=== PATIENT | male | born 1945 | race Caucasian/White ===

== ENCOUNTER 2018-01-08 06:14 | Day surgery (SDC) | payer MEDICARE ==
[~2018-01-08] VITALS: Ht 182.9 cm; Wt 85.8 kg
[~2018-01-08 06:14] MED LIST: ASPI325T PO; ATEN-102 PO; FISHCAP PO; LISI2.5T3 PO; LORA1TAB PO; PRAV40TA2 PO; SPIR25 PO
[2018-01-08] MEDS ORDERED: IOHEXOL 350 MG/ML 100 ML BTL (for Cath Lab) OTHER ONE (06:15)
[2018-01-08] MEDS ORDERED: SODIUM CHLORID 0.9% 500 ML IV PRN (07:00)
[2018-01-08] MEDS ORDERED: CHLORHEXIDINE GLUCONATE 2 % 1 PACK (2 CLOTHS) TOPICAL PRN (07:00)
[2018-01-08] MEDS ORDERED: METOPROLOL TARTRATE 25 MG TAB PO PRN (07:00)
[2018-01-08] MEDS ORDERED: POVIDONE IODINE 5% (ANTISEPSIS KIT) 4 APPLICATIONS EACH NARE PRN (07:00)
[2018-01-08] MEDS ORDERED: LACTATED RINGER'S 1000 ML IV PRN (07:00)
[2018-01-08] MEDS ORDERED: SODIUM CHLOR 0.9% 1000 ML INJ 1,000 ML IV SCH (07:00)
[2018-01-08 07:05] VITALS: BP 111/72; PULSE 69; RESP 16; TEMP 97.6; O2SAT 98
[2018-01-08] MEDS ORDERED: ISOS30TA3 PO (07:38)
[2018-01-08] MEDS ORDERED: ALBUAER3 INH (07:38)
[2018-01-08] MEDS ORDERED: SPIR25TA3 PO (07:38)
[2018-01-08] MEDS ORDERED: LORA1TAB12 PO (07:38)
[2018-01-08] MEDS ORDERED: METO1TAB9 PO (07:38)
[2018-01-08] MEDS ORDERED: ASPI325T33 PO (07:38)
[2018-01-08] MEDS ORDERED: GLYC1AER INH (07:38)
[2018-01-08] MEDS ORDERED: HEPARIN SODIUM - IV 10,000 UNITS/10 ML VIAL ONE ×2 (10:28→10:46)
[2018-01-08] MEDS ORDERED: HEPARIN-NS/PF FLUSH BAG 2,000 ML IV FLUSH ONE (10:43)
[2018-01-08] MEDS ORDERED: MIDAZOLAM HCL 2 MG/2 ML VIAL ONE (10:46)
[2018-01-08] MEDS ORDERED: BIVALIRUDIN 250 MG VIAL ONE (11:10)
--- NOTE | 2018-01-08 11:39 | CATHPROC ---
Decurate HIS Report Study Information Study Number Admission Scheduled Start Study Start [id number] Jan 08 2018 6:14AM 01/08/2018 Jan 08 2018 10:26AM [facility] Cardiac Catheterization Admit Source Facility Department Other [facility] - Analytic Manager Physician and Clinical Staff Initial Kenn Sun Polysom Tech Miles Cason RN Polysom Tech Patricia Charles BSN Recorder Raissa Medina,RT(R) (BS) Scrub Dorothy Cummins,RT(R) Procedures Performed Procedure Location (Site) Vessel Name Angiogram LV AO Arch (A1) Aorta Angiogram LV LV Ventricle Coronary Angiograms LCA Left Coronary Coronary Angiograms RCA Right Coronary L Heart Cath Wire insertion Radial (right) Radial Art. Equipment Time Online Editor Description Size Mfg Part Number Used/Scraped TRANSDUCER, STEPHANIE3D Data [id number] 10:54 [employer] NIELSON * Used W/STOCKCOCK *[id number] *[id number] *[id number] WIRE, HYDROSTEER 150CM [id number] 11:07 [employer] 150CM Used ANGLED GLIDE *[id number] 10:54 [employer] PACK, CCL CUSTOM * Used *[id number] 10:54 [employer] SUPPORT, ARTERIAL ADULT 74737 *[id number] Used [id number] 10:54 [employer] PACER PEN, SKIN DUAL W/ RULER * Used *[id number] PIG ANG 145 DXTERITY 11:16 [employer] FR 5 [id number] Used CATHETER BAND, RADIAL COMPRESSION TR [id number] 11:37 [employer] 24CM Used SHORT 24 *[id number] SHEATH, FR6 RADIAL PRELUDE 10:54 [employer] FR 6 [id number] Used EASE 11CM [id number] 10:54 [employer] WIRE, EXCHANGE 260CM 3MMJ 260CM Used *[id number] 10:54 [employer] OMNIPAQUE, 350 MG, 150ML 150ML [id number] Used [id number] 10:54 [employer] BLANKET,WARM AIR CCL * Used *[id number] History: Current Medications Medication Dosage/Unit Route Frequency Last Date/Time Taken ASA History: Allergies Allergy Reaction No Known Allergies History: Risk Factors Family History of Hypertension Dyslipidemia Previous CA Previous Heart Failure Premature CAD Yes Yes No No Yes Prior Valve Prior PCI Prior CABG Surgery No No No Cerebrovascular Peripheral Artery Chronic Lung On Dialysis Diabetes Disease Disease Disease No No No No No History: Stress Tests Stress or Imaging Studies Performed Yes Standard Exercise Stress Test No Stress Echo No Stress Test SPECT Stress Test SPECT Result Yes Negative Stress Test CMR No Cardiac CTA Coronary Calcium Score No No History: Other Current Smoker Method Quit Packs a Day Years Used Pack Years No Cigarettes 45 Years Ago 1 10 10 Labs Hgb (g/dl) Hct (%) WBC (l/cumm) Platelets (thousands) 11.60-17.00 35.00-51.00 4.00-11.00 150.00-450.00 11.6 32.7 6.3 202 Glucose (mg/dl) BUN (mg/dl) Creatinine (mg/dl) BUN:Creatinine (1:x) 74.00-106.00 7.00-18.00 0.50-1.30 10.00-20.00 102 14 0.8 17.5 Na (meq/l) K (meq/l) 136.00-145.00 3.50-5.10 134 4.3 INR (PTT:PT) 0.90-1.10 1.1 CPK-MB (ng/ML) 0.50-3.60 Not Drawn Medication Medication Total Dose (Bolus/Oral) Medication Total Dosage/Unit 1% XYLOCAINE 1 mL FENTANYL 75 mcg HEPARIN 5000 units RADIAL COCKTAIL 1 units VERSED 2 mg Medications (Bolus/Oral) Medication Time Given Dosage/Unit Administered By Reason 1% XYLOCAINE 01/08/2018 11:03:07 AM 1 mL Kenn Bassett 1 mL 1% XYLOCAINE given in lab by Kenn Bassett in Right Radial via Subcutaneous. Ntg 200mcg Verapamil 2.5mg Heparin RADIAL COCKTAIL 01/08/2018 11:04:50 AM 1 units Kenn Bassett 3000U 1 units RADIAL COCKTAIL given in lab by Kenn Bassett in Right Radial via Radial. Reason: Ntg 200mcg VERSED 01/08/2018 11:06:58 AM 2 mg Miles Cason 2 mg VERSED given in lab by Miles Cason RN in Left Forearm via Peripheral IV. FENTANYL 01/08/2018 11:07:10 AM 50 mcg Miles Cason 50 mcg FENTANYL given in lab by Miles Cason RN in Left Forearm via Peripheral IV. HEPARIN 01/08/2018 11:08:16 AM 5000 units Miles Cason 5000 units HEPARIN given in lab by Miles Cason RN in Left Forearm via Peripheral IV. Ordered by Kenn Osei. FENTANYL 01/08/2018 11:12:55 AM 25 mcg Miles Cason 25 mcg FENTANYL given in lab by Miles Cason RN in Left Forearm via Peripheral IV. Ordered by Kenn Bassett. Medication (Drip) Medication Time Given Dosage/Unit Concentration/Unit Diluent (ml) Solutio n IV Solutions 01/08/2018 10:37:15 AM 0 mL (IV) 500 NaCl .9 IV Solutions given in lab by Miles Cason RN in Left Forearm via Peripheral IV. Pump/Drip Flow = 30 ml/hr using NaCl .9. Initial Case Assessment Cardiovascular HR Rhythm NIBP Chest Pain 70 reg 125/68 0 Edema Present Skin color Skin None Normal Warm Dry Circulatory - Right Pulses Dorsalis Pedis Femoral Radial 1 1 1 Scale (0,1,2,3,4,d) Scale (0,1,2,3,4,d) Circulatory - Lower Extremities Color Lower Right Color Lower Left Normal Normal Neurological State Oriented to time-place- Alert Moves all extremities person Respiration - General Respiration Rate SpO2 (%) (B/min) 15 98 Final Case Assessment Cardiovascular HR Rhythm NIBP Chest Pain 70 reg 104/68 0 Edema Present Skin color Skin None Normal Warm Dry Circulatory - Right Pulses Dorsalis Pedis Femoral Radial 1 1 1 Scale (0,1,2,3,4,d) Scale (0,1,2,3,4,d) Circulatory - Lower Extremities Color Lower Right Color Lower Left Normal Normal Neurological State Oriented to time-place- Alert Moves all extremities person Respiration - General Respiration Rate SpO2 (%) (B/min) 14 97 Chronological Log Time Study Chronological Log 10:35:50 Patient arrived via Bed. 10:35:54 Patient Name, D.O.B, / Armband Verified By R.N. 10:35:56 Consent signed by the physician and the patient and verified by the Analytic Manager staff. 10:36:59 Pre-op and post- op instructions given; patient acknowledges understanding of instructions. 10:37:00 Verbal Stimulation=2 Physical Stimulation=2 Airway=2 Respiration=2 TOTAL=8. (0=absent, 1=li mited, 2=present) 10:37:01 Presedation assessment performed by Analytic Manager RN. 10:37:05 Allens test performed on the right radial and ulnar artery. 10:37:07 Patient has been NPO for More than 6Hrs. 10:37:10 Skin Breakdown none per pt 10:37:10 Patient Warmer Placed on the Table. 10:37:12 Elliott Prominences Protected 10:37:15 A # 20 IV was noted in the Forearm (left). Grade = 0 IV Solutions given in lab by Miles Cason, RN in Left Forearm via Peripheral IV. Pump/Drip Harsh w = 30 ml/hr using NaCl 10:37:15 .9. 10:37:16 History and physical on the chart or being dictated. Assessment: Initial Case, HR=70 BPM, Rhythm=reg, JLYA=419/68 mmhg, Chest Pain=0, Edema=None, Co janene=Normal, Skin = Warm, Dry Right Pulses: Jerardo Ped=1, Femoral=1, Radial=1 10:37:17 Lower Right Extremities: Color=Normal Lower Left Extremities: Color=Normal Neurological: State=Alert, Ox3, GONZALEZ Respiration: Resp=15 B/min, SpO2=98 % Vitals capture started with the following parameters, Patient=Adult, Interval=5 min, Initial Pr mzzsza=661 mmHg, 10:43:49 Deflation Rate=5 mmHg, Cuff placed on Left Arm 10:44:25 HR=69 bpm, NUHF=907/68 mmhg, SpO2=99.0 %, Resp=22 B/min, Pain=0, Yesi=10, Zaragoza=2 10:49:26 HR=70 bpm, YEZE=662/70 mmhg, SpO2=98.0 %, Resp=15 B/min, Pain=0, Yesi=10, Zaragoza=2 10:54:27 HR=71 bpm, GILL=560/70 mmhg, SpO2=98.0 %, Resp=20 B/min, Pain=0, Yesi=10, Zaragoza=2 10:54:33 paged 10:55:49 Reference ECG taken 10:56:07 MD responded 10:58:30 MD arrived. 10:59:26 HR=73 bpm, IBIM=298/79 mmhg, SpO2=98.0 %, Resp=16 B/min, Pain=0, Yesi=10, Zaragoza=2 11:01:07 Pressure channel 1 zeroed. Time Out. Correct patient, correct procedure, correct physician, power injector not loaded with contrast with surgical 11:02:03 team present. Time Out Concurred by MD and individual staff in procedure. 11:02:12 Case Start 11:03:07 1 mL 1% XYLOCAINE given in lab by Kenn Bassett in Right Radial via Subcutaneous. 11:04:16 Access site was right Radial Artery. 11:04:29 HR=72 bpm, GBJU=240/67 mmhg, SpO2=96.0 %, Resp=17 B/min, Pain=0, Yesi=10, Zaragoza=2 A SHEATH, FR6 RADIAL PRELUDE EASE 11CM FR 6 was advanced into the Radial (right) using the Perc utaneous 11:04:30 technique. 11:04:50 1 units RADIAL COCKTAIL given in lab by Kenn Bassett in Right Radial via Radial. Reason: Ntg 200mcg 11:05:21 In the Radial (right) the SHEATH, FR6 RADIAL PRELUDE EASE 11CM FR [address] by Kenn Bassett. A JR 5.0 INFINITI CATHETER FR 5 was advanced over a wire. OMNIPAQUE, 350 MG, 150ML 150ML was us ed for 11:05:52 injections. 11:06:50 A WIRE, HYDROSTEER 150CM ANGLED GLIDE 150CM was inserted via Radial (right). 11:06:58 2 mg VERSED given in lab by Miles Cason RN in Left Forearm via Peripheral IV. 11:07:10 50 mcg FENTANYL given in lab by Miles Cason RN in Left Forearm via Peripheral IV. 11:07:10 Wire removed Recorded Pressure: Ao, HR=70, Condition=Condition 1 11:07:51 (Aorta) Ao 79/42/58 11:08:05 The RCA was injected and visualized at various angles. OMNIPAQUE, 350 MG, 150ML 150ML used . 11:08:16 5000 units HEPARIN given in lab by Miles Cason RN in Left Forearm via Peripheral IV. Ord ered by Kenn Bassett. After removing the current catheter a JL 3.5 INFINITI CATHETER FR 5 was advanced over a WIRE, E XCHANGE 260CM 11:08:42 3MMJ 260CM. 11:09:28 HR=74 bpm, NIBP=92/55 mmhg, SpO2=97 %, Resp=16 B/min, Pain=0, Yesi=10, Zaragoza=2 11:11:40 The LCA was injected and visualized at various angles. OMNIPAQUE, 350 MG, 150ML 150ML used . 11:12:55 25 mcg FENTANYL given in lab by Miles Cason, RN in Left Forearm via Peripheral IV. Ordere d by Kenn Bassett. 11:14:23 HR=70 bpm, SGNW=351/56 mmhg, SpO2=97.0 %, Resp=11 B/min, Pain=0, Yesi=10, Zaragoza=2 After removing the current catheter a PIG ANG 145 DXTERITY CATHETER FR 5 was advanced over a WI RE, EXCHANGE 11:17:04 260CM 3MMJ 260CM. Recorded Pressure: LV, HR=59, Condition=Condition 1 11:18:51 (Left Ventricle) LV 96/2/10 11:19:26 HR=67 bpm, NIBP=97/60 mmhg, SpO2=97 %, Resp=14 B/min, Pain=0, Yesi=10, Zaragoza=2 11:19:42 The LV was injected at 10 cc/sec for a total of 30. OMNIPAQUE, 350 MG, 150ML 150ML used. 11:21:07 The AO Arch (A1) was injected at 5 cc/sec for a total of 20. OMNIPAQUE, 350 MG, 150ML 150M L used. 11:22:08 The AO Arch (A1) was injected at 5 cc/sec for a total of 20. OMNIPAQUE, 350 MG, 150ML 150M L used. 11:23:05 Catheter(s) removed without difficulty 11:23:28 Case End Radial Compression Device Used. 11 mLs of air placed in BAND, RADIAL COMPRESSION TR SHORT 24 2 4CM. Affected 11:23:54 hand 99 % O2 saturation. 11:24:26 No case complications noted. 11:24:27 Cine recording checked. 11:25:00 HR=75 bpm, PXAJ=289/61 mmhg, SpO2=99.0 %, Resp=25 B/min, Pain=0, Yesi=10, Zaragoza=2 11:25:43 Bedside Report will be given. 11:25:48 A Left Heart Cath was performed. Assessment: Final Case, HR=70 BPM, Rhythm=reg, YJSB=542/68 mmhg, Chest Pain=0, Edema=None, Col or=Normal, Skin = Warm, Dry Right Pulses: Jerardo Ped=1, Femoral=1, Radial=1 11:32:02 Lower Right Extremities: Color=Normal Lower Left Extremities: Color=Normal Neurological: State=Alert, Ox3, GONZALEZ Respiration: Resp=14 B/min, SpO2=97 % 11:33:50 Patient moved to stretcher End Study - Contrast Media Used In Study Contrast Total Opened (mL) Total Used (mL) Total Wasted (mL) Omnipaque 100 100 0 End Study - Maximum Contrast Load Max Contrast Load (mL) 537.5 End Study - Radiation Exposure Fluoro Time (minutes) 5.8 End Study - Patient Disposition Complications Transferred To No Analytic Manager Holding
[2018-01-08] MEDS ORDERED: MISC INFORMATION XX ONE (11:45)
[2018-01-08] MEDS ORDERED: oxyCODONE/ACETAMINOPHEN 5 MG/325 MG TAB PO PRN ×2 (11:45)
[2018-01-08] MEDS ORDERED: LORazepam 2 MG/ML VIAL ONE (11:45)
[2018-01-08] MEDS ORDERED: BACITRACIN OINT 0.9 GM PKT TOP ONE (11:45)
[2018-01-08] MEDS ORDERED: DEXTROSE 50% IN WATER 50 ML VIAL(D50) IV PUSH PRN (13:15)
--- NOTE | 2018-01-08 13:24 | ECHRPT ---
Indication: Cardiomyopathy, unspecified CONCLUSIONS Mildly dilated left ventricle. Wall thickness is normal. The left ventricular systolic function is mildly reduced with an estimated ejection fraction in the range of 45- 50%. There is global left ventricular dysfunction. The left atrial size is oxtf-rh-aiynawdtnx dilated. Mild thickening of the mitral valve leaflets. Moderate mitral valve regurgitation. Mitral annular calcification is present. No mitral valve stenosis. Trileaflet aortic valve. Aortic valve sclerosis is present. No aortic valve regurgitation. No aortic valve stenosis. BP: / HR: Rhythm: Technical Quality: Medications Complications Proc. Components FINDINGS LEFT VENTRICLE Mildly dilated left ventricle. Wall thickness is normal. The left ventricular systolic function is mildly reduced with an estimated ejection fraction in the range of 45- 50%. There is global left ventricular dysfunction. RIGHT VENTRICLE Normal right ventricular size and systolic function. LEFT ATRIUM The left atrial size is zhdm-rv-jhayxdrtzn dilated. RIGHT ATRIUM The right atrial size is normal. ATRIAL APPENDAGES Normal left atrial appendage size with no evidence of thrombus formation. ATRIAL SEPTUM Normal atrial septal thickness without atrial level shunting by limited color doppler interrogation. AORTA The aortic root and proximal ascending aorta are normal in size on limited imaging. MITRAL VALVE Mild thickening of the mitral valve leaflets. Moderate mitral valve regurgitation. Mitral annular calcification is present. No mitral valve stenosis. AORTIC VALVE Trileaflet aortic valve. Aortic valve sclerosis is present. No aortic valve regurgitation. No aortic valve stenosis. TRICUSPID VALVE Structurally normal tricuspid valve. No tricuspid valve stenosis or regurgitation. VESSELS The inferior vena cava is normal in size. PULMONARY VALVE The pulmonary valve is not well visualized. PERICADIUM No pericardial effusion. Kenn Bassett MD, FACC (Electronically Signed) Final Date:08 January 2018 13:22
--- NOTE | 2018-01-08 13:47 | PD.CAR.PN ---
CVT Progress Note Subjective/Hospital Course: pt seen and evaluated sts data completed and discussed with pt full consult to follow RISK SCORES About the STS Risk Calculator Procedure: MV Replacement + CAB Risk of Mortality: 3.248% Morbidity or Mortality: 27.071% Long Length of Stay: 14.205% Short Length of Stay: 14.492% Permanent Stroke: 1.664% Prolonged Ventilation: 21.049% DSW Infection: 1.103% Renal Failure: 8.165% Reoperation: 12.555% Objective: Vital Signs Date Time Temp Pulse Resp B/P (MAP) Pulse Ox O2 Delivery O2 Flow Rate FiO2 01/08/18 07:05 97.6 69 16 111/72 (85) 98 Mayra Reddy Jan 08, 2018 13:47
[2018-01-08] MEDS ORDERED: NITROGLYCERIN 0.4 MG SL 25 TABS/BTL SL PRN (14:00)
[2018-01-08] MEDS ORDERED: LORazepam 2 MG/ML VIAL IV ONE (14:00)
[2018-01-08 14:18] LABS: AUTOMATED NEUTROPHIL # 4.2 TH/MM3 (1.8-7.7); BASOPHIL % 0.7 % (0.0-2.0); EOSINOPHIL # 0.1 TH/MM3 (0-0.4); HEMATOCRIT 32.9 % (39.0-51.0); HEMOGLOBIN 11.8 GM/DL (13.0-17.0); LYMPH % 16.7 % (9.0-44.0); MEAN CELL VOLUME 97.2 FL (80.0-100.0); MEAN CORPUSCULAR HEMOGLOBIN 34.8 PG (27.0-34.0); MEAN CORPUSCULAR HGB CONC 35.8 % (32.0-36.0); MONO % 11.5 % (0.0-8.0); MONOCYTE # 0.7 TH/MM3 (0-0.9); NEUT % 70.1 % (16.0-70.0); PLATELET COUNT 204 TH/MM3 (150-450); RED BLOOD COUNT 3.39 MIL/MM3 (4.50-5.90); RED CELL DISTRIBUTION WIDTH 14.6 % (11.6-17.2); WHITE BLOOD COUNT 5.9 TH/MM3 (4.0-11.0)
[2018-01-08 14:21] LABS: ALBUMIN 3.5 GM/DL (3.4-5.0); AST (GOT) 46 U/L (15-37); BICARBONATE 24.2 MEQ/L (21.0-32.0); BLOOD UREA NITROGEN 13 MG/DL (7-18); CALCIUM 8.9 MG/DL (8.5-10.1); CHLORIDE 103 MEQ/L (98-107); CREATININE 0.74 MG/DL (0.60-1.30); GLOMERULAR FILTRATION RATE 105 ML/MIN (>89); GLUCOSE,RANDOM 95 MG/DL (74-106); SODIUM (NA) 136 MEQ/L (136-145)
[2018-01-08 14:22] LABS: ALT (GPT) 45 U/L (12-78)
[2018-01-08 14:24] LABS: ALKALINE PHOSPHATASE 97 U/L (45-117); INTERNATIONAL NORMALIZED RATIO 1.1 RATIO; PROTHROMBIN TIME - PATIENT 11.1 SEC (9.8-11.6); TOTAL BILIRUBIN ADULT 1.1 MG/DL (0.2-1.0)
[2018-01-08 14:37] LABS: HEMOGLOBIN A1C 4.9 % (4.3-6.0)
--- NOTE | 2018-01-08 14:44 | RADRPT ---
EXAM DATE/TIME: 01/08/2018 14:06 [facility] COMPARISON: No previous studies available for comparison. INDICATIONS : Pre op CABG MEDICAL HISTORY : Cardiovascular disease. SURGICAL HISTORY : Coronary artery stent. ENCOUNTER: Initial ACUITY: 1 day PAIN SCORE: 0/10 LOCATION: Bilateral chest FINDINGS: A single view of the chest demonstrates the lungs to be symmetrically aerated without evidence of mas s, infiltrate or effusion. The cardiomediastinal contours are unremarkable. Osseous structures are intact. CONCLUSION: 1. No acute cardiopulmonary disease. Silvio Vera MD on January 08, 2018 at 14:41 Board Certified Radiologist. This report was verified electronically.
--- NOTE | 2018-01-08 15:06 | RADRPT ---
EXAM DATE/TIME: 01/08/2018 14:23 [facility] COMPARISON: No previous studies available for comparison. INDICATIONS : Preop cardiac surgery. MEDICAL HISTORY : Hypertension. Hypercholesterolemia. SURGICAL HISTORY : Cholecystectomy. Hernia repair. ENCOUNTER: Initial ACUITY: 1 day PAIN SCORE: 1/10 LOCATION: Bilateral legs. TECHNIQUE: Venous ultrasound of the left and right leg was performed from the inguinal ligament to the proximal calf. Real-time, color Doppler and spectral tracing, compression and augmentation techniques were us ed. FINDINGS: RIGHT LEG: There is normal compressibility of the deep venous system from the inguinal region to the proximal ca lf. No echogenic clot is seen in the lumen of the common femoral, femoral, popliteal, and posterior tibial veins. There is a normal response of the venous system to proximal and distal augmentation an d respiration. LEFT LEG: There is normal compressibility of the deep venous system from the inguinal region to the proximal ca lf. No echogenic clot is seen in the lumen of the common femoral, femoral, popliteal, and posterior tibial veins. There is a normal response of the venous system to proximal and distal augmentation an d respiration. CONCLUSION: Normal examination. Dain Lisa MD on January 08, 2018 at 15:05 Board Certified Radiologist. This report was verified electronically.
[2018-01-08 15:21] LABS: BILIRUBIN, URINE NEG (NEG); BLOOD, URINE TRACE (NEG); GLUCOSE,URINE NEG (NEG); KETONE, URINE NEG (NEG); MUCUS URINE FEW /lpf (OCC); NITRITE,URINE NEG (NEG); PH, URINE 7.5 (5.0-8.5); URINE COLOR LIGHT-YELLOW (YELLW/STRAW); URINE LEUKOCYTE ESTERASE NEG (NEG)
--- NOTE | 2018-01-08 15:28 | RADRPT ---
EXAM DATE/TIME: 01/08/2018 14:31 [facility] COMPARISON: No previous studies available for comparison. INDICATIONS : Preop cardiac surgery. MEDICAL HISTORY : Hypertension. Hypercholesterolemia. SURGICAL HISTORY : Cholecystectomy. Hernia repair. ENCOUNTER: Initial ACUITY: 1 day PAIN SCORE: 1/10 LOCATION: Bilateral legs. GREATER SAPHENOUS VEIN THIGH: PROXIMAL: Right 5 mm Left 5 mm MID: Right Non-visualized Left 4 mm DISTAL: Right 2 mm Left 2 mm CALF: PROXIMAL: Right 2 mm Left 2 mm MID: Right 1 mm Left 2 mm DISTAL: Right 1 mm Left 2 mm FINDINGS: The venous system of the lower extremities are patent by color Doppler imaging. Measurements of the leg veins (in mm) are listed above. CONCLUSION: 1. Lower extremity venous mapping, as above. Silvio Vera MD on January 08, 2018 at 15:11 Board Certified Radiologist. This report was verified electronically.
--- NOTE | 2018-01-08 16:03 | MA ---
cc: Kenn Bassett MD 01/08/2018 INDICATION: Cardiomyopathy, mitral regurgitation. METHOD: Risks, benefits and alternatives discussed with the patient. Patient understood, consented to procedure. Patient brought to the cardiac catheterization lab, placed on the catheterization table. Right wrist was prepped and draped in sterile fashion. Right wrist was anesthetized with 2% lidocaine. Right radial artery was cannulated, and a 6 Z[place]ian 7 cm sheath was placed without difficulty. LEFT HEART CATHETERIZATION: Intraventricular hemodynamics 96/2 mmHg. CORONARY ANGIOGRAPHY: 1. Left main coronary artery is short, has mild disease. 2. Left anterior descending coronary is 100% occluded proximally. Cannot tell if it comes off at a separate ostium off the aorta and is occluded at the sinus of valsalva or if it is stump occluded at the distal left main at the bifurcation of the circumflex. Regardless, it is heavily calcified but does fill via collaterals distally, well visualized on cranial views. 3. Left circumflex gives rise to a large ramus intermedius branch with an 80% ostial stenosis and left circumflex proximally has a 99% stenosis, gives rise to a large obtuse marginal branch and is codominant vessel giving rise to a smaller posterior descending branch. 4. Right coronary is codominant vessel giving rise to posterior descending branch and has a 90% stenosis in the prox-mid segment. CONCLUSIONS: 1. Severe multivessel coronary artery disease. 2. Normal left-sided filling pressure. PLAN: Given the severe, heavily calcified, totally occluded LAD and severe circumflex and right coronary artery stenosis, I think he would be best served with consideration of surgical revascularization. I will show the films to Dr. Friend to get his opinion for targets. I think the LAD is collateralized well enough to visualize and hopefully has a reasonable target the time of bypass. Given the mitral regurgitation, probably would also benefit from a mitral valve ring for concern of worsening in the future. He is clinically stable and otherwise no chest pain symptoms. I think it would reasonable consideration for discharge and bring him back electively, hopefully sometime next week for surgery. MD SHARAN Mohr/CHRISTINE , 11:32 AM , 04:02 PM CAROL
--- NOTE | 2018-01-08 16:28 | RADRPT ---
EXAM DATE/TIME: 01/08/2018 14:14 [facility] COMPARISON: No previous studies available for comparison. INDICATIONS : Preop cardiac surgery. MEDICAL HISTORY : Hypertension. Hypercholesterolemia. SURGICAL HISTORY : Cholecystectomy. Hernia repair. ENCOUNTER: Initial ACUITY: 1 day PAIN SCORE: 1/10 LOCATION: Bilateral neck PEAK SYSTOLIC VELOCITIES (cm/sec): ICA/CCA RATIO: Right: 1.3 Left: 0.8 ICA: Right: 74 Left: 63 CCA: Right: 57 Left: 84 ECA: Right: 91 Left: 82 VERTEBRAL: Right: 40 antegrade Left: 39 antegrade Elevated flow velocities and ICA/CCA ratios have been found to correlate with increased degrees of vessel stenosis, calculated as percentage of diameter relative to a normal segment of distal ICA/CCA FINDINGS: RIGHT CAROTID: No significant stenosis is visualized. The waveforms are within normal limits. LEFT CAROTID: No significant stenosis is visualized. The waveforms are within normal limits. VERTEBRAL ARTERIES: Antegrade flow is seen in both vertebral arteries. MISCELLANEOUS: None. CONCLUSION: 1. Scattered calcified plaque in the bilateral common and proximal internal carotid arteries without significant flow-limiting stenosis. 2. Antegrade vertebral artery flow bilaterally. Silvio Vera MD on January 08, 2018 at 16:25 Board Certified Radiologist. This report was verified electronically.
--- NOTE | 2018-01-08 19:00 | MB ---
cc: Mayra Reddy DATE OF CONSULT: 01/08/2018 HISTORY OF PRESENT ILLNESS: This 72-year-old male, patient of Dr. Levi Riley and Dr. Bassett, who apparently started having some shortness of breath about 6 week ago, had an upper respiratory infection about 2 weeks ago, was sick for about 10 days, was seen by cardiology for a workup, had a prior history of 2D echo back in 04/2017, which showed moderate mitral valve regurgitation. He underwent transesophageal echocardiogram today by Dr. Bassett, which showed an EF of 45-50%, global left ventricular dysfunction, left atrial size was mild to moderately dilated, moderate mitral valve regurgitation, trace tricuspid regurgitation. He also underwent cardiac catheterization which showed 4 vessel disease. Proximal LAD was 100% occluded, the mid distal 50%, the circumflex was 99%, the OM 20%, the RCA 90%, the ramus 80%. We were consulted to evaluate for coronary artery bypass grafting and possible mitral valve repair versus replacement. PAST MEDICAL HISTORY: Significant for history of coronary artery disease. He was seen and cathed about [address] Marti. There was some blockage but there was collaterals, so no PCI was done at that time. Cardiomyopathy with EF of 40-45%, moderate MR. CHF. PAST SURGICAL HISTORY: Include hernia repair of right inguinal hernia. Also he has had some testicle surgery, cholecystectomy. ALLERGIES: NO KNOWN ALLERGIES: HOME MEDICATIONS: Include spironolactone, aspirin, isosorbide, Lorazepam, metoprolol, ProAir. FAMILY HISTORY: Mother from cancer, father from Alzheimer's. SOCIAL HISTORY: The patient is single, does have on 32-year-old son. Quit smoking 45 years ago, smoked for 8 years. Drinks 2 drinks maybe 1-2 times per week. REVIEW OF SYSTEMS: GENERAL: No night sweats, fever, heat and cold intolerance. SKIN: No psoriasis, itching or hives. HEENT: No blurred vision or hearing loss. RESPIRATORY: Positive for recent shortness of breath. He did have an episode of chest pain after the cath today, which was immediately resolved after the nitroglycerin. GASTROINTESTINAL: No diarrhea or vomiting. GENITOURINARY: No burning, frequency, or urgency. CENTRAL NERVOUS SYSTEM: No history of TIAs, CVAs or seizure disorder. PHYSICAL EXAMINATION: VITAL SIGNS: Blood pressure 110/70, heart rate is 70, afebrile. GENERAL: The patient is awake, alert, no acute distress. He did have some chest pain earlier, which has totally resolved after 1 nitro. Had a little bit of anxiety and also received some ativan. HEENT: Head is normocephalic, atraumatic. Pupils equal and reactive. Oral mucosa pink and moist. NECK: Supple, no JVD. CARDIAC: Heart sounds S1, S2. Regular rate and rhythm. Soft systolic murmur. LUNGS: Clear to auscultation. No wheezes, rales or rhonchi. ABDOMEN: He has a notable umbilical type hernia. He has had surgical scars. GENITOURINARY: Deferred. EXTREMITIES: Reveal no cyanosis, clubbing or edema. DIAGNOSTIC STUDIES: Lab work shows most recent sodium 134, potassium 4.3, BUN of 14, creatinine of 0.85. Hemoglobin 11, hematocrit of 32, white cell count of 6.3, platelet count of 202. INR 1.1. EKG shows some Q-waves in the inferior leads, some nonspecific lateral ST changes. IMPRESSION: This is a gentleman with moderate to severe mitral regurgitation. Symptoms include some congestive heart failure, [place] class II. Also patient with coronary artery disease that will require coronary artery bypass grafting x 4. The films have been evaluated by Dr. Odin Friend. PLAN: Will be for surgery on Thursday, 01/11. Procedures, alternatives, and risks discussed with the patient. JERSON Yung MD JRT/DANNY , 02:01 PM , 06:59 PM
--- NOTE | 2018-01-09 10:09 | EKG ---
Date Performed: 01/08/2018 Time Performed: 12:17:22 PTAGE: 72 years EKG: Sinus rhythm . Inferior infarct - age undetermined Possible anterior infarct - age undetermined Lateral ST-T velazquez es may be due to myocardial ischemia Abnormal ECG PREVIOUS TRACING : 01/08/2018 11.50 DOCTOR: Kenn Bassett Interpretating Date/Time 01/09/2018 10:08:05
--- NOTE | 2018-01-09 10:11 | EKG ---
Date Performed: 01/08/2018 Time Performed: 11:50:24 PTAGE: 72 years EKG: Sinus rhythm . Inferior infarct - age undetermined Cannot rule out anterior infarct - age undetermined LVH with se condary repolarization abnormality Lateral ST-T changes are probably due to ventricular hypertrophy A bnormal ECG NO PREVIOUS TRACING DOCTOR: Kenn Bassett Interpretating Date/Time 01/09/2018 10:08:54
--- NOTE | 2018-01-12 08:49 | RSPPFT ---
DATE OF PROCEDURE: 01/08/18 COMMENTS: Spirometry shows FVC of 2.7 at 60% of predicted, FEV1 of 2.2 at 63%, FEV1/FVC ratio is decreased. Flow is normal at FEF 25, FEF 50, FEF 25-75. Post=bronchodilator study was not done. IMPRESSION: 1. Study is suggestive of mild restrictive lung disease. 2. Post-bronchodilator study was not done.
== END 2018-01-08 15:30 | disposition home or self-care (01) ==
LOC: HDOC 06:14 → HDIC 06:15 → HDOC 15:30
PROVIDERS: ATTEND Internal Medicine
DX: I42.9 Cardiomyopathy, unspecified (principal); I34.0 Nonrheumatic mitral (valve) insufficiency; I50.9 Heart failure, unspecified; I25.10 Atherosclerotic heart disease of native coronary artery without angina pectoris; I10 Essential (primary) hypertension; E78.00 Pure hypercholesterolemia, unspecified; Z79.4 Long term (current) use of insulin; Z79.899 Other long term (current) drug therapy; R09.89 Other specified symptoms and signs involving the circulatory and respiratory systems; R06.02 Shortness of breath
CPT/HCPCS: 71045; 80053; 81001; 83036; 85025; 85610; 86850; 86900; 86901; 87641; 93005; 93312; 93320; 93325; 93458; 93567; 93880; 93970; 93998; 94010; 99152; C1769; C1893; J1644; J2060; J2250; J3010; J0583; Q9967

== ENCOUNTER 2018-01-11 05:48 | Inpatient (IN) | payer MEDICARE ==
[2018-01-11] VITALS (14 sets, daily range): BP systolic 95–104; BP diastolic 42–63; PULSE 71–80; RESP 16–18; TEMP 96.5–98.4; O2SAT 93–99
[~2018-01-11] VITALS: Ht 182.9 cm; Wt 90.6 kg
[~2018-01-11 05:48] MED LIST changes: +ALBUAER3 INH; -ASPI325T PO; +ASPI325T33 PO; -ATEN-102 PO; -FISHCAP PO; +GLYC1AER INH; +ISOS30TA3 PO; -LISI2.5T3 PO; -LORA1TAB PO; +LORA1TAB12 PO; +METO1TAB9 PO; -PRAV40TA2 PO; -SPIR25 PO; +SPIR25TA3 PO
[2018-01-11] MEDS ORDERED: SODIUM CHLORID 0.9% 500 ML IV PRN (06:30)
[2018-01-11] MEDS ORDERED: DEXTROSE 50% IN WATER 50 ML VIAL(D50) IV PUSH PRN ×2 (06:30→13:15)
[2018-01-11] MEDS ORDERED: POVIDONE IODINE 5% (ANTISEPSIS KIT) 4 APPLICATIONS EACH NARE PRN (06:30)
[2018-01-11] MEDS ORDERED: CHLORHEXIDINE GLUCONATE 2 % 1 PACK (2 CLOTHS) TOPICAL PRN (06:30)
[2018-01-11] MEDS ORDERED: METOPROLOL TARTRATE 25 MG TAB PO PRN (06:30)
[2018-01-11] MEDS ORDERED: CHLORHEXIDINE GLUCONATE 4% SOLN 120 ML BTL TOPICAL SCH (06:30)
[2018-01-11] MEDS ORDERED: METOPROLOL TARTRATE 25 MG TAB PO SCH (06:30)
[2018-01-11] MEDS ORDERED: HEPARIN SODIUM - SQ 10,000 UNITS/ML VIAL ONE ×2 (06:32→07:18)
[2018-01-11] MEDS ORDERED: ceFAZolin 2 GM PREMIX 50 ML ONE ×2 (06:32→12:36)
[2018-01-11] MEDS ORDERED: VANCOMYCIN HCL 1000 MG VIAL ONE (06:32)
[2018-01-11] MEDS: LACTATED RINGER'S 1000 ML IV PRN ×2 (06:45→14:03)
[2018-01-11] MEDS ORDERED: fentaNYL CITRATE 250 MCG/5 ML AMP ONE ×3 (07:01→14:03)
[2018-01-11] MEDS ORDERED: MIDAZOLAM HCL 5 MG/ML VIAL (1 ML) ONE (07:01)
[2018-01-11] MEDS ORDERED: CUSTODIOL HTK IRR SOLN 3,000 ML ONE (07:21)
[2018-01-11] MEDS ORDERED: SODIUM BICARBONATE 8.4% INJ 150 ML ONE (07:22)
[2018-01-11] MEDS ORDERED: POTASSIUM CHLORIDE 40 MEQ/20 ML VIAL ONE (07:22)
[2018-01-11] MEDS ORDERED: MANNITOL INJ 100 ML ONE (07:23)
[2018-01-11] MEDS ORDERED: HEPARIN SODIUM - IV 10,000 UNITS/10 ML VIAL ONE (07:23)
[2018-01-11] MEDS ORDERED: ALBUMIN 25% INJ 50 ML IV ONE (07:24)
[2018-01-11] MEDS ORDERED: CALCIUM CHLORIDE 10% SOLN 1 GRAM/10 ML SYR ONE (07:24)
[2018-01-11] MEDS ORDERED: MIDAZOLAM HCL 2 MG/2 ML VIAL ONE ×2 (07:28→14:03)
[2018-01-11] MEDS ORDERED: CEFAZOLIN 500 MG in NS IRR BTL 500 ML IRRIGATION SCH (07:30)
[2018-01-11] MEDS ORDERED: INSULIN REGULAR 100 UNITS in NS 100 ML IV PRN (07:30)
[2018-01-11] MEDS ORDERED: PAPAVERINE 60 MG-NITROGLYCERIN 100 MCG-DILTIAZEM 100 MG in NS 100 ML IRRIGATION SCH ×4 (07:30)
[2018-01-11] MEDS ORDERED: VECURONIUM BROMIDE 20 MG VIAL ONE (07:40)
[2018-01-11] MEDS: ceFAZolin 2 GM PREMIX 50 ML IV SCH ×3 (08:45→21:35)
--- NOTE | 2018-01-11 11:06 | PD.CAR.PN ---
CVT Progress Note Subjective/Hospital Course: 72-year-old male, patient of Dr. Levi Rliey and Dr. Bassett, who apparently started having some shortness of breath about 6 week ago, had an upper respiratory infection about 2 weeks ago, was sick for about 10 days, was seen by cardiology for a workup, had a prior history of 2D echo back in 04/2017, which showed moderate mitral valve regurgitation. He underwent transesophageal echocardiogram today by Dr. Bassett, which showed an EF of 45-50%, global left ventricular dysfunction, left atrial size was mild to moderately dilated, moderate mitral valve regurgitation, trace tricuspid regurgitation. He also underwent cardiac catheterization which showed 4 vessel disease. Proximal LAD was 100% occluded, the mid distal 50%, the circumflex was 99%, the OM 20%, the RCA 90%, the ramus 80%. We were consulted to evaluate for coronary artery bypass grafting and possible mitral valve repair versus replacement. Pt was discharged home and electively admitted for surgery today PAST MEDICAL HISTORY: coronary artery disease MR , HTN, HLP, BPH, CKD stage 3, alcoholic cirrhosis Cardiomyopathy , CHF Objective: Vital Signs Date Time Temp Pulse Resp B/P (MAP) Pulse Ox O2 Delivery O2 Flow Rate FiO2 01/11/18 06:48 97.0 71 18 128/70 (89) 99 Labs: Laboratory Tests Test 01/11/18 06:45 (1) CHF (congestive heart failure) (2) Chronic kidney disease (3) Coronary artery disease (4) Hypertension (5) BPH (benign prostatic hyperplasia) Mayra Reddy Jan 11, 2018 11:06
--- NOTE | 2018-01-11 11:10 | HHI.FF ---
Face to Face Verification Diagnosis: (1) S/P CABG (coronary artery bypass graft) (2) Coronary artery disease (3) CHF (congestive heart failure) (4) Hypertension (5) Chronic kidney disease (6) BPH (benign prostatic hyperplasia) Home Health Nursing Order: Signs/symptoms of disease process Medication education-adverse effect Wound care and dressing changes Nursing assessment with vital signs Instructions: Heart and Vascular Surgery patients *Special attention to sternal dressing Mandatory frequency Assess and evaluation, 4 days in a row The next week 3X week 2 times a week for 4 weeks 1 time a week for 5 weeks Schedule Heart and Vascular patients for full 60 day certification period Initial visit Review Open Heart Surgery Discharge Instructions (Sternal precautions, Activity, Elastic hose, Incision care, Driving, Incentive spirometry, Smoking, [place], Work and other) Need Betadine to paint incision Medication reconciliation Importance of follow up care/ check on appointments Make calendar record temperature daily When to call [facility] at Home nurse, review instructions, phone list Incentive Spirometry, demonstration Visit 1- Begin discharge instruction for patient family and/ or caregiver using teach back method- Signs and symptoms of infection Disease characteristics Medicines and side effects Foods and nutrition/ appetite Infection control/ hand washing/ hygiene Visit 2- Continue teaching Discharge instructions- include additional information on smoking cessation , sternal dressing (sternal vac) Visit 3- Continue teaching- Cough and deep breathing, incision monitoring. Choose my plate Visit 4- Continue teaching- Discuss limitations Discuss how they are feeling Discuss progress toward goals Remaining visits- continue teaching and monitoring PREVENA Single Use Negative Wound Therapy System Caregiver Instruction Sheet 1. A Prevena dressing system was applied to the chest incision during surgery , to promote wound healing. It works via a suction device (negative pressure wound therapy) to remove low to moderate levels of exudate (drainage) and infectious materials. We recommend that the device stay in place for up to seven days, from day of surgery. 2. Day of Surgery__01/11/18 Day of Removal /10/26 3. The dressing should only be removed by a health family day care provider. Please arrange removal of device to coincide with Home Health visit and or with Nursing staff at Rehab 4. If skin reddening or irritation of skin occurs, or excessive drainage, please notify the Cardiovascular Surgeons office at [phone]. 5. Light showering is permissible; however the pump should be disconnected and placed in safe location, where it will not get wet. The dressing should not be exposed to direct spray or submerged in water. No bath tub / shower only. Ensure the end of the tubing attached to the dressing is facing down so that water does not enter the top of the tube. 6. To remove Prevena dressing: press purple button to turn off device / remove the suction. Then disconnect the tubing from the pump. The fixation strips should be stretched away from the skin and the dressing lifted at one corner and peeled back until it has been fully removed. 7. After removal, it is ok to shower daily using liquid dial soap and clean wash cloth, rinse and pat dry, and leave incision open to air dry. For any concerns regarding Prevena dressing, and or wounds, please contact Ilda Bhagat, patient navigator at [phone] or notify the Cardiovascular Surgeons office at [phone]. Incentive spirometry Q1 hr x 10, while awake, also use acapella device hourly whole awake Sternal Breast Bone Precautions: NO pushing or pulling, ( pt must use sternal pillow to support chest with all activities and with coughing ( takes up to 3 months breast bone to heal ) Daily incision care: ok to shower daily, no tub bath. Wash all incisions with liquid dial soap, clean wash cloth to each site, rinse and pat dry. Observe for any signs of infection, such as drainage which is dark yellow, nieto, green or foul smelling. Immediately report to the surgeon any drainage from the chest incision, or legs, and for any abnormal drainage from the chest tube sites. Notify surgeon if any temp >101.5 degrees F. When specialty dressing removed/ or if you do not have one, continue to shower daily as above, then rinse and pat incision dry and paint with betadine daily x 5 days. Allow steri strips to fall off if you have any. Avoid lotions, creams, salves, oils, etc. for the first month Please see attached forms for additional instructions regarding post Open Heart specialty wound vacuum dressings. ANA CRISTINA or Prevena , Dressing to be removed by Nursing staff on __01/18/18 F/U appointment: as per DC instructions: PCP in 2 weeks, CV surgeon 2 weeks, High Speed Warper Tender 3-4 weeks For any questions regarding incisions/ dressing / meds / post op care or above Symptoms, Thursday 8am-5pm Heart & Vascular Surgery Office ( Dr. Friend & Dr. Marie), After Hours / Nights (5pm -8am) Weekends and Holidays Please call [facility] Card[facility] (CIC) Charge Nurse I have seen patient Alan Figueroa on 01/11/18. My clinical findings support the need for the requested home health care services because: Deconditioned w/ increased weakness I certify that my clinical findings support that this patient is homebound because: Post-op weakness Mayra Reddy Jan 11, 2018 11:10
[2018-01-11] MEDS ORDERED: ceFAZolin INJ 1,000 MG VIAL ONE (11:51)
[2018-01-11] MEDS ORDERED: HEPARIN SODIUM - SQ 10,000 UNITS/ML VIAL OTHER ONE (12:00)
[2018-01-11] MEDS ORDERED: LACTATED RINGER'S 1000 ML INJ 3,000 ML IV ONE (12:00)
[2018-01-11] MEDS ORDERED: ePHEDrine/NS 25 MG/5 ML SYRINGE IV ONE (12:00)
[2018-01-11] MEDS ORDERED: NITROGLYCERIN 50 MG/DEXTROSE 5% SOLN 250 ML BTL IV ONE (12:00)
[2018-01-11] MEDS ORDERED: DEXMEDETOMIDINE HCL 200 MCG/2 ML VIAL IV ONE (12:00)
[2018-01-11] MEDS ORDERED: CALCIUM CHLORIDE 10% SOLN 1 GRAM/10 ML SYR IV ONE (12:00)
[2018-01-11] MEDS ORDERED: PHENYLEPH/NS 1000 MCG/10 ML SYR IV ONE (12:00)
[2018-01-11] MEDS ORDERED: PHENYLEPHRINE HCL 10 MG/ML VIAL IV ONE (12:00)
[2018-01-11] MEDS ORDERED: VECURONIUM BROMIDE 10 MG VIAL IV ONE (12:00)
[2018-01-11] MEDS ORDERED: NORMOSOL R INJ 1,000 ML IV ONE (12:00)
[2018-01-11] MEDS ORDERED: SODIUM CHLOR 0.9% 250 ML INJ 250 ML IV ONE (12:00)
[2018-01-11] MEDS ORDERED: SODIUM CHLORID 0.9% 500 ML INJ 500 ML IV ONE (12:00)
[2018-01-11] MEDS ORDERED: PROTAMINE SULFATE 250 MG/25 ML VIAL IV ONE (12:00)
[2018-01-11] MEDS ORDERED: MAGNESIUM SULFATE 1 GM/2 ML VIAL IV ONE (12:00)
[2018-01-11] MEDS ORDERED: AMINOCAPROIC ACID INJ 250 MG/ML 20 ML VIAL IV ONE (12:00)
[2018-01-11] MEDS ORDERED: NS 100 ML (PAB BAG) 200 ML IV ONE (12:00)
[2018-01-11] MEDS ORDERED: LACTATED RINGER'S 1000 ML INJ 500 ML IV PRN (13:03)
[2018-01-11] MEDS ORDERED: RESP: ALBUTEROL 2.5 MG/IPRATROPIUM 0.5 MG NEB (PRN) NEB (13:15)
[2018-01-11] MEDS ORDERED: POTASSIUM CHLOR 20 MEQ PREMIX 100 ML IV PRN ×3 (13:15)
[2018-01-11] MEDS ORDERED: METOPROLOL TARTRATE 5 MG/5 ML VIAL IV PUSH PRN (13:15)
[2018-01-11] MEDS ORDERED: MAGNESIUM SULFATE INJ 2 GM in SODIUM CHLORIDE 0.9% INJ 100 ML IV PRN ×4 (13:15)
[2018-01-11] MEDS ORDERED: hydrALAZINE HCL 20 MG/ML VIAL IV PUSH PRN (13:15)
[2018-01-11] MEDS ORDERED: Post-op Orders (for Pharmacy) OTHER ONE (13:15)
[2018-01-11] MEDS ORDERED: SODIUM BICARBONATE 8.4% SOLN 50 MEQ/50 ML VIAL IV PUSH PRN ×2 (13:15)
[2018-01-11] MEDS ORDERED: CALCIUM CHLORIDE 10% 1 GRAM/10 ML VIAL IV PUSH PRN (13:15)
[2018-01-11] MEDS ORDERED: CALCIUM CHLORIDE INJ 1 GM in SODIUM CHLORIDE 0.9% INJ 100 ML IV PRN ×2 (13:15→21:00)
[2018-01-11] MEDS ORDERED: MEPERIDINE HCL 25 MG/ML VIAL IV PUSH PRN (13:15)
[2018-01-11] MEDS ORDERED: MORPHINE SULFATE 4 MG/ML INJ IV PUSH PRN (13:15)
[2018-01-11] MEDS ORDERED: ACETAMINOPHEN 325 MG TAB PO PRN (13:15)
[2018-01-11] MEDS ORDERED: POTASSIUM CHLORIDE 20 MEQ CONTROLLED RELEASE TAB PO PRN ×2 (13:15)
[2018-01-11] MEDS ORDERED: ONDANSETRON HCL 4 MG/2 ML VIAL IV PUSH PRN (13:15)
[2018-01-11] MEDS ORDERED: ACETAMINOPHEN 650 MG SUPP RECTAL PRN (13:15)
[2018-01-11] MEDS ORDERED: SODIUM CHLORIDE 0.9% FLUSH 10 ML FLUSH IV FLUSH PRN (13:15)
[2018-01-11] MEDS ORDERED: RESP: RACEPINEPHRINE 2.25% 0.5 ML NEB NEB PRN (13:15)
--- NOTE | 2018-01-11 13:48 | PD.OP ---
cc: Odin Friend MD; Kenn Bassett MD Operative Report Date of Surgery: Jan 11, 2018 Preoperative Diagnosis: Postoperative Diagnosis: Procedure: 1. Off-pump Coronary Artery Bypass Grafting x 4 with Left Internal Mammary Artery (CHAMBERS) to the Left Anterior Descending (LAD), reverse saphenous vein graft to the Obtuse Marginal 1 (OM1) branch of the Circumflex artery, reverse saphenous vein graft to the Ramus marginalis (RM), reverse saphenous vein graft to the Posterior Descending Artery (RPDA) of the Right Coronary Artery 2. Bilateral Leg Endoscopic Vein [place] 3. Intraoperative Vein Mapping Surgeon: Odin Friend Systems Support Specialist(s): Radha Hcikey Operation and Findings: PREPROCEDURE DIAGNOSES 1. Multi-Vessel Coronary Artery Disease. 2. Stable Angina 3. Mild Mitral Insufficiency 4. Moderate Left Ventricular Function (EF 40-45%) POSTPROCEDURE DIAGNOSES Same SURGICAL PROCEDURE 1. Off-pump Coronary Artery Bypass Grafting x 4 with Left Internal Mammary Artery (CHAMBERS) to the Left Anterior Descending (LAD), reverse saphenous vein graft to the Obtuse Marginal 1 (OM1) branch of the Circumflex artery, reverse saphenous vein graft to the Ramus marginalis (RM), reverse saphenous vein graft to the Posterior Descending Artery (RPDA) of the Right Coronary Artery 2. Bilateral Leg Endoscopic Vein [place] 3. Intraoperative Vein Mapping SURGEON Odin Friend MD TOOLMAN Yeny Hickey PA-C ANESTHESIA General endotracheal ELECTRONIC ENGRAVER MARYURI Meraz MD PREPARATION ChloraPrep. COUNTS Needle, sponge, and instrument counts were correct. DRAINS Two 32-Swedish mediastinal tubes. COMPLICATIONS None. INDICATIONS FOR PROCEDURE The patient is a 72-year-old presenting with multi-vessel coronary artery disease. He is being brought to the operating room for surgical revascularization therapy. PROCEDURE Patient was brought to the operating room and placed supine on the OR table. Following the induction of adequate general endotracheal anesthesia and placement of appropriate monitoring devices, intraoperative vein mapping was performed which revealed small but suitable-caliber conduit in the both thighs with non-usable conduit below the knees. Intraoperative KAREN confirmed minimal MR with moderate LV dysfunction (EF 40-45%). The patient was then prepped and draped in standard sterile fashion. Next, 2500 units of intravenous heparin was given. Bilateral thigh greater saphenous veins were harvested endoscopically. This appeared to be a useable-caliber conduits. Simultaneously, a median sternotomy was performed and the left internal mammary artery dissected free off the posterior sternal table. The patient was systemically heparinized and anticoagulation monitored by serial ACT measurements. The internal mammary artery had good pulsatile flow in it and was a decent-caliber conduit. The pericardium was then divided in the midline, the cradle created and targets analyzed. At this point, all anastomoses were performed in a beating-heart fashion using the Ecociclus stabilizing system. The left internal mammary artery was anastomosed to the distal LAD (2 mm) in an end-to-side fashion using 7-0 Prolene. The next segment was anastomosed to the OM1 (1.75 mm) in an end-to- side fashion using a running 7-0 Prolene. The next segment was anastomosed to the RPDA (1.75 mm) in an end-to-side fashion using a running 7-0 Prolene. The proximal and mid RCA was very diffusely and heavily calcified. The final segment was anastomosed to the ramus (1.75 mm) in an end-to-side fashion using a running 7-0 Prolene. The proximal anastomoses were then constructed to the ascending aorta in a running manner using 6-0 Prolene. All anastomotic sites were inspected and appeared to be hemostatic and patent. Protamine solution was given. Strict hemostasis was assured. The closure was undertaken. 2 chest tubes were placed. The pericardium was reapproximated in the midline. The sternum was approximated using sternal wires. The muscular and fascial layer were then closed in 3 layers. The endoscopic vein harvest sites were closed in 2 layers. The patient tolerated the procedure well and was transferred to CVICU in stable condition. Odin Friend MD Jan 11, 2018 13:48
[2018-01-11] MEDS ORDERED: DEXMEDETOMIDINE INJ 200 MCG in SODIUM CHLORIDE 0.9% INJ 50 ML IV PRN ×2 (14:00→14:45)
[2018-01-11] MEDS: ALBUMIN 5% INJ 250 ML IV PRN ×2 (14:03→14:43)
--- NOTE | 2018-01-11 14:30 | RADRPT ---
EXAM DATE/TIME: 01/11/2018 14:10 [facility] COMPARISON: CHEST SINGLE AP, January 08, 2018, 14:06. INDICATIONS : Post CABG. MEDICAL HISTORY : Hypertension. SURGICAL HISTORY : Cholecystectomy. CABG. ENCOUNTER: Initial ACUITY: 1 day PAIN SCORE: Non-responsive. LOCATION: Bilateral chest FINDINGS: Examination of the chest demonstrates postoperative findings status post median sternotomy. Support l jun and tubes are in satisfactory position. Endotracheal tube is in place above the aldo. There is no evidence of pneumothorax. CONCLUSION: Postsurgical changes as above. John Riley MD on January 11, 2018 at 14:27 Board Certified Radiologist. This report was verified electronically.
[2018-01-11] MEDS: RESP: ALBUTEROL 2.5 MG/IPRATROPIUM 0.5 MG NEB (SCH) NEB ×2 (14:50→22:04)
[2018-01-11] MEDS: KETOROLAC TROMETHAMINE 30 MG/ML (IVP) VIAL IV PUSH PRN ×2 (14:54→20:12)
[2018-01-11] MEDS: ACETAMINOPHEN 1000 MG/100 ML 100 ML IV SCH ×2 (14:54→21:35)
[2018-01-11] MEDS ORDERED: DOPamine INJ PREMIX 500 ML IV PRN (15:00)
[2018-01-11] MEDS ORDERED: DOBUTamine PREMIX DRIP 250 ML IV PRN (15:00)
[2018-01-11] MEDS ORDERED: PHENYLEPHRINE INJ 40 MG in DEXTROSE 5% IN WATE 500 ML INJ 496 ML IV PRN ×2 (15:00)
[2018-01-11] MEDS ORDERED: INSULIN REGULAR (IV INFUSION) 100 UNITS in SODIUM CHLORIDE 0.9% INJ 99 ML IV PRN (15:00)
[2018-01-11] MEDS ORDERED: NITROGLYCERIN-D5W 50 MG/250 ML 250 ML IV PRN (15:00)
[2018-01-11] MEDS ORDERED: CLEVIDIPINE INJ 50 ML IV PRN (15:00)
[2018-01-11] MEDS ORDERED: ceFAZolin 2 GM PREMIX 50 ML IV SCH (21:00)
[2018-01-11] MEDS: SODIUM CHLORIDE 0.9% FLUSH 10 ML FLUSH IV FLUSH SCH (21:00)
[2018-01-11] MEDS: POTASSIUM CHLOR 20 MEQ PREMIX 100 ML IV PRN (21:04)
[2018-01-11] MEDS: AMIODARONE 200 MG TAB PO SCH (21:35)
[2018-01-12] VITALS (14 sets, daily range): BP systolic 89–143; BP diastolic 49–68; PULSE 75–104; RESP 16–18; TEMP 98–98.6; O2SAT 95–99
[2018-01-12] MEDS: POTASSIUM CHLOR 20 MEQ PREMIX 100 ML IV PRN (00:24)
[2018-01-12] MEDS: KETOROLAC TROMETHAMINE 30 MG/ML (IVP) VIAL IV PUSH PRN ×2 (02:20→09:20)
[2018-01-12] MEDS: RESP: ALBUTEROL 2.5 MG/IPRATROPIUM 0.5 MG NEB (SCH) NEB ×3 (03:33→19:47)
[2018-01-12] MEDS: ACETAMINOPHEN 1000 MG/100 ML 100 ML IV SCH ×2 (03:38→09:19)
[2018-01-12] MEDS: ceFAZolin 2 GM PREMIX 50 ML IV SCH ×3 (04:25→21:11)
[2018-01-12 05:18] LABS: HEMATOCRIT 27.1 % (39.0-51.0); HEMOGLOBIN 9.6 GM/DL (13.0-17.0); MEAN CELL VOLUME 97.6 FL (80.0-100.0); MEAN CORPUSCULAR HEMOGLOBIN 34.6 PG (27.0-34.0); MEAN CORPUSCULAR HGB CONC 35.4 % (32.0-36.0); MEAN PLATELET VOLUME 7.7 FL (7.0-11.0); PLATELET COUNT 200 TH/MM3 (150-450); RED BLOOD COUNT 2.78 MIL/MM3 (4.50-5.90); RED CELL DISTRIBUTION WIDTH 14.3 % (11.6-17.2); WHITE BLOOD COUNT 9.5 TH/MM3 (4.0-11.0)
[2018-01-12 05:45] LABS: BICARBONATE 22.2 MEQ/L (21.0-32.0); CALCIUM 9.1 MG/DL (8.5-10.1); CREATININE 0.79 MG/DL (0.60-1.30); MAGNESIUM 1.4 MG/DL (1.5-2.5)
[2018-01-12] MEDS: PANTOPRAZOLE SOD 40 MG DELAYED RELEASE TAB PO SCH (06:00)
--- NOTE | 2018-01-12 06:27 | RADRPT ---
EXAM DATE/TIME: 01/12/2018 05:25 [facility] COMPARISON: CHEST SINGLE AP, January 11, 2018, 14:10. INDICATIONS : Short of breath, post CABG. MEDICAL HISTORY : Hypertension. SURGICAL HISTORY : CABG. Cholecystectomy. ENCOUNTER: Subsequent ACUITY: 3 days PAIN SCORE: 0/10 LOCATION: Bilateral chest FINDINGS: Portable AP view of the chest demonstrates stable mildly enlarged cardiac silhouette. Patient is post median sternotomy. Right IJ line and mediastinal drain remain present. The endotracheal tube and constantino ogastric tube have been removed. Lungs are mildly underinflated and there is mild airspace opacity in the left lower lobe. Left chest tube remains present and no pneumothorax is seen. CONCLUSION: 1. Stable atelectasis versus consolidation in the left lower lobe. 2. Left chest tube remains present and no pneumothorax is seen. Perry Bryan MD on January 12, 2018 at 6:24 Board Certified Radiologist. This report was verified electronically.
[2018-01-12] MEDS: SODIUM CHLORIDE 0.9% FLUSH 10 ML FLUSH IV FLUSH SCH ×2 (09:00→20:59)
[2018-01-12] MEDS: ACETAMINOPHEN/HYDROcodone 325 MG/5 MG TAB PO PRN ×2 (09:20→19:15)
[2018-01-12] MEDS: AMIODARONE 200 MG TAB PO SCH ×2 (09:21→20:59)
[2018-01-12] MEDS: CLOPIDOGREL 75 MG TAB PO SCH (09:21)
[2018-01-12] MEDS: ASPIRIN 81 MG CHEW TAB PO SCH (09:21)
[2018-01-12] MEDS ORDERED: GLUCAGON 1 MG/ML VIAL OTHER PRN (09:30)
[2018-01-12] MEDS ORDERED: SOD PHOSPHATE/SOD BIPHOSPHATE (ADULT) ENEMA 133ML RECTAL PRN (09:30)
[2018-01-12] MEDS ORDERED: DEXTROSE 50% IN WATER 50 ML VIAL(D50) IV PUSH PRN (09:30)
[2018-01-12] MEDS ORDERED: BISACODYL 10 MG SUPP RECTAL PRN (09:30)
[2018-01-12] MEDS: INSULIN ASPART SUPPLEMENTAL SCALE SQ SCH ×3 (10:00→22:00)
[2018-01-12] MEDS: DOCUSATE SODIUM 100 MG CAP PO SCH ×2 (10:51→20:59)
[2018-01-12] MEDS: FOLIC ACID 1 MG TAB PO SCH (10:51)
[2018-01-12] MEDS: THIAMINE HCL 100 MG TAB PO SCH (10:51)
[2018-01-12 12:44] LABS: ALBUMIN 2.7 GM/DL (3.4-5.0); DIRECT BILIRUBIN ADULT 0.5 MG/DL (0.0-0.2)
[2018-01-12 12:46] LABS: CHOLESTEROL/ HDL RATIO 2.99 RATIO; HDL CHOLESTEROL 28.7 MG/DL (40.0-60.0); INDIRECT BILIRUBIN 0.9 MG/DL (0.0-0.8); TOTAL BILIRUBIN ADULT 1.4 MG/DL (0.2-1.0); TOTAL PROTEIN 5.2 GM/DL (6.4-8.2)
--- NOTE | 2018-01-12 16:42 | PD.CAR.PN ---
CVT Progress Note Subjective/Hospital Course: 72-year-old male, patient of Dr. Levi Riley and Dr. Bassett, who apparently started having some shortness of breath about 6 week ago, had an upper respiratory infection about 2 weeks ago, was sick for about 10 days, was seen by cardiology for a workup, had a prior history of 2D echo back in 04/2017, which showed moderate mitral valve regurgitation. He underwent transesophageal echocardiogram today by Dr. Bassett, which showed an EF of 45-50%, global left ventricular dysfunction, left atrial size was mild to moderately dilated, moderate mitral valve regurgitation, trace tricuspid regurgitation. He also underwent cardiac catheterization which showed 4 vessel disease. Proximal LAD was 100% occluded, the mid distal 50%, the circumflex was 99%, the OM 20%, the RCA 90%, the ramus 80%. We were consulted to evaluate for coronary artery bypass grafting and possible mitral valve repair versus replacement. Pt was discharged home and electively admitted for surgery today PAST MEDICAL HISTORY: coronary artery disease MR , HTN, HLP, BPH, CKD stage 3, alcoholic cirrhosis Cardiomyopathy , CHF surgery: Off-pump Coronary Artery Bypass Grafting x 4 with Left Internal Mammary Artery (CHAMBERS) to the Left Anterior Descending (LAD), reverse saphenous vein graft to the Obtuse Marginal 1 (OM1) branch of the Circumflex artery, reverse saphenous vein graft to the Ramus marginalis (RM), reverse saphenous vein graft to the Posterior Descending Artery (RPDA) of the Right Coronary Artery Bilateral Leg Endoscopic Vein [place] 2500cc crystalloid, 500cc cell saver, 800cc EBL extubated after surgery 3/6 pt very painful, meds adjusted VSS, will transfer to stepdown wean 02 creatinine stable EKG q waves inf leads unchanged, non-specific st changes CXR consolidation left lower lobe/ needs aggressive pulm toileting Objective: GENERAL: A&O x 3 SKIN: Warm and dry. prevena dressing to chest , alberto wrap to both legs HEAD: Normocephalic. EYES: No scleral icterus. No injection or drainage. NECK: Supple, trachea midline. No JVD or lymphadenopathy. CARDIOVASCULAR: Regular rate and rhythm without murmurs, gallops, or rubs. RESPIRATORY: Breath sounds equal bilaterally. No accessory muscle use. chest tube to wall suction, no air leak/ drained 380cc / 12 hrs sero sang GASTROINTESTINAL: Abdomen soft, non-tender, nondistended. MUSCULOSKELETAL: No cyanosis, or edema. BACK: Nontender without obvious deformity. No CVA tenderness. Vital Signs Date Time Temp Pulse Resp B/P (MAP) Pulse Ox O2 Delivery O2 Flow Rate FiO2 01/12/18 15:00 98.6 83 16 109/56 (73) 98 01/12/18 15:00 92 01/12/18 13:55 96 Nasal Cannula 2.00 01/12/18 13:00 87 01/12/18 12:00 88 01/12/18 11:00 85 01/12/18 11:00 98.5 100 18 89/53 (65) 95 01/12/18 10:57 18 01/12/18 10:00 18 01/12/18 10:00 18 01/12/18 07:33 87 01/12/18 07:33 98.5 85 16 91/60 (70) 99 116/51 (72) 01/12/18 07:31 97 Room Air 2.00 01/12/18 06:00 82 121/54 01/12/18 05:40 16 01/12/18 04:25 80 98/43 01/12/18 03:38 75 104/49 01/12/18 03:00 98.6 75 16 93/53 (66) 99 104/49 (67) 01/12/18 03:00 75 01/12/18 03:00 97 Room Air 01/12/18 02:00 73 113/52 01/12/18 01:00 95 92/48 01/12/18 00:00 98.6 01/11/18 23:00 98.4 80 16 98/63 (75) 99 104/49 (67) 01/11/18 23:00 78 01/11/18 23:00 80 104/49 01/11/18 22:30 88 91/44 01/11/18 21:20 97 Nasal Cannula 2.00 01/11/18 20:00 97.6 01/11/18 19:00 97.2 75 16 95/42 (59) 99 01/11/18 19:00 76 01/11/18 19:00 99 Nasal Cannula 1.00 01/11/18 18:19 72 01/11/18 18:19 97.3 01/11/18 17:02 71 Result Diagram: 3/6/18 0410 01/12/18 0410 (1) CHF (congestive heart failure) (2) Chronic kidney disease Plan: creatinine stable 0.79 (3) Coronary artery disease Plan: ASA, start low dose statin , plavix , amiodarone OOB ambulate pulm toileting CM to eval for rehab/ pt lives alone (4) Hypertension Plan: controlled (5) BPH (benign prostatic hyperplasia) (6) EtOH dependence Plan: multi vitamin, folic acid and thiamine Mayra Reddy Jan 12, 2018 16:42
[2018-01-12] MEDS: SENNOSIDES 8.6 MG TAB PO SCH (20:58)
[2018-01-12] MEDS: ATORVASTATIN 40 MG TAB PO SCH (20:59)
[2018-01-13] VITALS (31 sets, daily range): BP systolic 96–118; BP diastolic 53–62; PULSE 57–118; RESP 16–20; TEMP 97.9–98.6; O2SAT 93–97
[2018-01-13] MEDS: KETOROLAC TROMETHAMINE 30 MG/ML (IVP) VIAL IV PUSH PRN ×2 (00:01→09:25)
[2018-01-13] MEDS: INSULIN ASPART SUPPLEMENTAL SCALE SQ SCH ×5 (02:00→21:00)
[2018-01-13] MEDS: ACETAMINOPHEN/HYDROcodone 325 MG/5 MG TAB PO PRN ×2 (02:39→15:01)
[2018-01-13] MEDS: ceFAZolin 2 GM PREMIX 50 ML IV SCH (05:00)
[2018-01-13] MEDS: PANTOPRAZOLE SOD 40 MG DELAYED RELEASE TAB PO SCH (05:42)
[2018-01-13 06:03] LABS: BASOPHIL % 0.4 % (0.0-2.0); EOSINOPHIL # 0.1 TH/MM3 (0-0.4); HEMATOCRIT 24.1 % (39.0-51.0); HEMOGLOBIN 8.6 GM/DL (13.0-17.0); LYMPH % 8.9 % (9.0-44.0); LYMPHOCYTE # 0.6 TH/MM3 (1.0-4.8); MEAN CELL VOLUME 97.9 FL (80.0-100.0); MEAN CORPUSCULAR HEMOGLOBIN 35.2 PG (27.0-34.0); MEAN CORPUSCULAR HGB CONC 35.9 % (32.0-36.0); MEAN PLATELET VOLUME 7.3 FL (7.0-11.0); MONO % 13.5 % (0.0-8.0); MONOCYTE # 0.9 TH/MM3 (0-0.9); NEUT % 76.2 % (16.0-70.0); PLATELET COUNT 140 TH/MM3 (150-450); RED BLOOD COUNT 2.46 MIL/MM3 (4.50-5.90); RED CELL DISTRIBUTION WIDTH 14.8 % (11.6-17.2); WHITE BLOOD COUNT 6.6 TH/MM3 (4.0-11.0)
[2018-01-13 07:05] LABS: BICARBONATE 25.3 MEQ/L (21.0-32.0); CALCIUM 8.3 MG/DL (8.5-10.1); CREATININE 0.82 MG/DL (0.60-1.30); MAGNESIUM 1.6 MG/DL (1.5-2.5)
--- NOTE | 2018-01-13 07:36 | EKG ---
Date Performed: 01/12/2018 Time Performed: 06:11:28 PTAGE: 72 years EKG: Sinus rhythm Old anterior and inferior infarcts Nonspecific ST-T wave abnormalities similiar to the prior tracing . Abnormal ECG PREVIOUS TRACING : 01/08/2018 12.17 DOCTOR: Kyle Brown Interpretating Date/Time 01/13/2018 07:35:49
[2018-01-13] MEDS: RESP: ALBUTEROL 2.5 MG/IPRATROPIUM 0.5 MG NEB (SCH) NEB ×3 (07:52→19:09)
[2018-01-13] MEDS: THIAMINE HCL 100 MG TAB PO SCH (09:23)
[2018-01-13] MEDS: DOCUSATE SODIUM 100 MG CAP PO SCH ×2 (09:23→21:52)
[2018-01-13] MEDS: ASPIRIN 81 MG CHEW TAB PO SCH (09:23)
[2018-01-13] MEDS: SODIUM CHLORIDE 0.9% FLUSH 10 ML FLUSH IV FLUSH SCH ×2 (09:23→21:53)
[2018-01-13] MEDS: FOLIC ACID 1 MG TAB PO SCH (09:24)
[2018-01-13] MEDS: AMIODARONE 200 MG TAB PO SCH ×2 (09:24→21:53)
[2018-01-13] MEDS: MAGNESIUM HYDROXIDE SUSP 30 ML CUP PO SCH (09:24)
[2018-01-13] MEDS: POLYETHYLENE GLYCOL 17 GM PKG PO SCH (09:24)
[2018-01-13] MEDS: CLOPIDOGREL 75 MG TAB PO SCH (09:24)
[2018-01-13] MEDS: MULTIVITAMINS/MINERALS THERAPEUTIC TAB PO SCH (09:24)
[2018-01-13] MEDS ORDERED: PILL SPLITTER OTHER PRN (11:30)
[2018-01-13] MEDS: METOPROLOL TARTRATE 25 MG TAB PO SCH ×2 (12:11→21:52)
[2018-01-13] MEDS: MAGNESIUM SULFATE 1 GM PREMIX 100 ML IV SCH ×2 (12:12→13:55)
--- NOTE | 2018-01-13 16:05 | PD.CAR.PN ---
CVT Progress Note Subjective/Hospital Course: 72-year-old male, patient of Dr. Levi Riley and Dr. Bassett, who apparently started having some shortness of breath about 6 week ago, had an upper respiratory infection about 2 weeks ago, was sick for about 10 days, was seen by cardiology for a workup, had a prior history of 2D echo back in 04/2017, which showed moderate mitral valve regurgitation. He underwent transesophageal echocardiogram today by Dr. Bassett, which showed an EF of 45-50%, global left ventricular dysfunction, left atrial size was mild to moderately dilated, moderate mitral valve regurgitation, trace tricuspid regurgitation. He also underwent cardiac catheterization which showed 4 vessel disease. Proximal LAD was 100% occluded, the mid distal 50%, the circumflex was 99%, the OM 20%, the RCA 90%, the ramus 80%. We were consulted to evaluate for coronary artery bypass grafting and possible mitral valve repair versus replacement. Pt was discharged home and electively admitted for surgery today PAST MEDICAL HISTORY: coronary artery disease MR , HTN, HLP, BPH, CKD stage 3, alcoholic cirrhosis Cardiomyopathy , CHF surgery: Off-pump Coronary Artery Bypass Grafting x 4 with Left Internal Mammary Artery (CHAMBERS) to the Left Anterior Descending (LAD), reverse saphenous vein graft to the Obtuse Marginal 1 (OM1) branch of the Circumflex artery, reverse saphenous vein graft to the Ramus marginalis (RM), reverse saphenous vein graft to the Posterior Descending Artery (RPDA) of the Right Coronary Artery Bilateral Leg Endoscopic Vein [place] 2500cc crystalloid, 500cc cell saver, 800cc EBL extubated after surgery 3/6 pt very painful, meds adjusted VSS, will transfer to stepdown wean 02 creatinine stable EKG q waves inf leads unchanged, non-specific st changes CXR consolidation left lower lobe/ needs aggressive pulm toileting 3/7 chest tube drained 110cc/ 12 hrs, then additional 100cc/ chest left in place very anxious about removal agreeable for rehab after discharge continue pulm toileting Objective: GENERAL: A&O x 3 SKIN: Warm and dry. prevena dressing to chest [place] EVH sites intact HEAD: Normocephalic. EYES: No scleral icterus. No injection or drainage. NECK: Supple, trachea midline. No JVD or lymphadenopathy. CARDIOVASCULAR: Regular rate and rhythm without murmurs, gallops, or rubs. RESPIRATORY: Breath sounds equal bilaterally. No accessory muscle use. chest tube to wall suction, no air leak GASTROINTESTINAL: Abdomen soft, non-tender, nondistended. MUSCULOSKELETAL: No cyanosis, or edema. BACK: Nontender without obvious deformity. No CVA tenderness. Vital Signs Date Time Temp Pulse Resp B/P (MAP) Pulse Ox O2 Delivery O2 Flow Rate FiO2 01/13/18 15:02 98.3 80 18 110/59 (76) 96 01/13/18 14:00 77 01/13/18 13:00 82 01/13/18 12:00 86 01/13/18 11:06 98.3 90 20 113/62 (79) 94 01/13/18 11:00 93 01/13/18 10:00 92 01/13/18 09:00 118 01/13/18 08:00 84 01/13/18 07:52 96 21 01/13/18 07:30 94 Room Air 01/13/18 07:27 97.9 86 20 109/58 (75) 94 01/13/18 07:00 84 01/13/18 06:00 57 01/13/18 05:16 85 01/13/18 04:08 84 01/13/18 03:56 97.9 99 16 100/55 (70) 93 01/13/18 03:52 91 01/13/18 02:00 97 01/13/18 01:06 97 01/13/18 00:00 102 01/12/18 23:15 98.2 102 17 106/56 (73) 96 01/12/18 23:10 102 01/12/18 22:35 102 01/12/18 21:00 102 01/12/18 20:15 100 01/12/18 20:15 16 01/12/18 19:50 Nasal Cannula 2.00 01/12/18 19:20 98.0 101 16 143/68 (93) 97 Arterial Line 01/12/18 19:20 97 Nasal Cannula 2.00 01/12/18 19:20 104 Labs: Laboratory Tests Test 01/13/18 05:00 White Blood Count 6.6 TH/MM3 (4.0-11.0) Red Blood Count 2.46 MIL/MM3 (4.50-5.90) Hemoglobin 8.6 GM/DL (13.0-17.0) Hematocrit 24.1 % (39.0-51.0) Mean Corpuscular Volume 97.9 FL (80.0-100.0) Mean Corpuscular Hemoglobin 35.2 PG (27.0-34.0) Mean Corpuscular Hemoglobin Concent 35.9 % (32.0-36.0) Red Cell Distribution Width 14.8 % (11.6-17.2) Platelet Count 140 TH/MM3 (150-450) Mean Platelet Volume 7.3 FL (7.0-11.0) Neutrophils (%) (Auto) 76.2 % (16.0-70.0) Lymphocytes (%) (Auto) 8.9 % (9.0-44.0) Monocytes (%) (Auto) 13.5 % (0.0-8.0) Eosinophils (%) (Auto) 1.0 % (0.0-4.0) Basophils (%) (Auto) 0.4 % (0.0-2.0) Neutrophils # (Auto) 5.0 TH/MM3 (1.8-7.7) Lymphocytes # (Auto) 0.6 TH/MM3 (1.0-4.8) Monocytes # (Auto) 0.9 TH/MM3 (0-0.9) Eosinophils # (Auto) 0.1 TH/MM3 (0-0.4) Basophils # (Auto) 0.0 TH/MM3 (0-0.2) CBC Comment DIFF FINAL Differential Comment Blood Urea Nitrogen 14 MG/DL (7-18) Creatinine 0.82 MG/DL (0.60-1.30) Random Glucose 109 MG/DL (74-106) Calcium Level 8.3 MG/DL (8.5-10.1) Magnesium Level 1.6 MG/DL (1.5-2.5) Sodium Level 136 MEQ/L (136-145) Potassium Level 4.1 MEQ/L (3.5-5.1) Chloride Level 103 MEQ/L (98-107) Carbon Dioxide Level 25.3 MEQ/L (21.0-32.0) Anion Gap 8 MEQ/L (5-15) Estimat Glomerular Filtration Rate 93 ML/MIN (>89) Result Diagram: 01/13/18 0500 01/13/18 0500 (1) CHF (congestive heart failure) (2) Chronic kidney disease Plan: creatinine stable 0.79 (3) Coronary artery disease Plan: ASA, statin , plavix , amiodarone , BB OOB ambulate pulm toileting CM to eval for rehab/ pt lives alone (4) Hypertension Plan: controlled (5) BPH (benign prostatic hyperplasia) (6) EtOH dependence Plan: multi vitamin, folic acid and thiamine (7) Anxiety Plan: add ativan po at night Mayra Reddy Jan 13, 2018 16:05
[2018-01-13] MEDS: SENNOSIDES 8.6 MG TAB PO SCH (21:52)
[2018-01-13] MEDS: LORazepam 0.5 MG TAB PO PRN (21:52)
[2018-01-13] MEDS: ATORVASTATIN 40 MG TAB PO SCH (21:53)
[2018-01-14] VITALS (21 sets, daily range): BP systolic 105–119; BP diastolic 55–64; PULSE 69–92; RESP 17–20; TEMP 98.1–99.2; O2SAT 96–98
[2018-01-14] MEDS: ACETAMINOPHEN/HYDROcodone 325 MG/5 MG TAB PO PRN ×3 (03:22→22:32)
[2018-01-14 04:12] LABS: HEMATOCRIT 24.5 % (39.0-51.0); HEMOGLOBIN 8.6 GM/DL (13.0-17.0); MEAN CELL VOLUME 97.4 FL (80.0-100.0); MEAN CORPUSCULAR HEMOGLOBIN 34.3 PG (27.0-34.0); MEAN CORPUSCULAR HGB CONC 35.3 % (32.0-36.0); MEAN PLATELET VOLUME 7.6 FL (7.0-11.0); PLATELET COUNT 165 TH/MM3 (150-450); RED BLOOD COUNT 2.52 MIL/MM3 (4.50-5.90); RED CELL DISTRIBUTION WIDTH 14.7 % (11.6-17.2); WHITE BLOOD COUNT 6.8 TH/MM3 (4.0-11.0)
[2018-01-14 04:40] LABS: BICARBONATE 25.2 MEQ/L (21.0-32.0); CALCIUM 8.3 MG/DL (8.5-10.1); CREATININE 0.81 MG/DL (0.60-1.30)
[2018-01-14] MEDS: PANTOPRAZOLE SOD 40 MG DELAYED RELEASE TAB PO SCH (06:45)
[2018-01-14] MEDS: RESP: ALBUTEROL 2.5 MG/IPRATROPIUM 0.5 MG NEB (SCH) NEB (07:33)
[2018-01-14] MEDS: INSULIN ASPART SUPPLEMENTAL SCALE SQ SCH ×4 (08:00→21:00)
[2018-01-14] MEDS: POLYETHYLENE GLYCOL 17 GM PKG PO SCH (09:03)
[2018-01-14] MEDS: MAGNESIUM HYDROXIDE SUSP 30 ML CUP PO SCH (09:03)
[2018-01-14] MEDS: DOCUSATE SODIUM 100 MG CAP PO SCH ×2 (09:03→21:00)
[2018-01-14] MEDS: ASPIRIN 81 MG CHEW TAB PO SCH (09:04)
[2018-01-14] MEDS: THIAMINE HCL 100 MG TAB PO SCH (09:05)
[2018-01-14] MEDS: FOLIC ACID 1 MG TAB PO SCH (09:05)
[2018-01-14] MEDS: CLOPIDOGREL 75 MG TAB PO SCH (09:05)
[2018-01-14] MEDS: METOPROLOL TARTRATE 25 MG TAB PO SCH ×2 (09:05→22:08)
[2018-01-14] MEDS: MULTIVITAMINS/MINERALS THERAPEUTIC TAB PO SCH (09:05)
[2018-01-14] MEDS: AMIODARONE 200 MG TAB PO SCH ×2 (09:06→22:08)
[2018-01-14] MEDS: SODIUM CHLORIDE 0.9% FLUSH 10 ML FLUSH IV FLUSH SCH ×2 (09:11→22:09)
--- NOTE | 2018-01-14 17:03 | PD.CAR.PN ---
CVT Progress Note Subjective/Hospital Course: 72-year-old male, patient of Dr. Levi Riley and Dr. Bassett, who apparently started having some shortness of breath about 6 week ago, had an upper respiratory infection about 2 weeks ago, was sick for about 10 days, was seen by cardiology for a workup, had a prior history of 2D echo back in 04/2017, which showed moderate mitral valve regurgitation. He underwent transesophageal echocardiogram today by Dr. Bassett, which showed an EF of 45-50%, global left ventricular dysfunction, left atrial size was mild to moderately dilated, moderate mitral valve regurgitation, trace tricuspid regurgitation. He also underwent cardiac catheterization which showed 4 vessel disease. Proximal LAD was 100% occluded, the mid distal 50%, the circumflex was 99%, the OM 20%, the RCA 90%, the ramus 80%. We were consulted to evaluate for coronary artery bypass grafting and possible mitral valve repair versus replacement. Pt was discharged home and electively admitted for surgery today PAST MEDICAL HISTORY: coronary artery disease MR , HTN, HLP, BPH, CKD stage 3, alcoholic cirrhosis Cardiomyopathy , CHF surgery: Off-pump Coronary Artery Bypass Grafting x 4 with Left Internal Mammary Artery (CHAMBERS) to the Left Anterior Descending (LAD), reverse saphenous vein graft to the Obtuse Marginal 1 (OM1) branch of the Circumflex artery, reverse saphenous vein graft to the Ramus marginalis (RM), reverse saphenous vein graft to the Posterior Descending Artery (RPDA) of the Right Coronary Artery Bilateral Leg Endoscopic Vein [place] 2500cc crystalloid, 500cc cell saver, 800cc EBL extubated after surgery 3/6 pt very painful, meds adjusted VSS, will transfer to stepdown wean 02 creatinine stable EKG q waves inf leads unchanged, non-specific st changes CXR consolidation left lower lobe/ needs aggressive pulm toileting 3/7 chest tube drained 110cc/ 12 hrs, then additional 100cc/ chest left in place very anxious about removal agreeable for rehab after discharge continue pulm toileting 01/14 chest tube dc without difficulty now in NSR eval for dc to rehab in am Objective: GENERAL: A&O x 3 SKIN: Warm and dry. prevena dressing to chest , incisions intact both legs HEAD: Normocephalic. EYES: No scleral icterus. No injection or drainage. NECK: Supple, trachea midline. No JVD or lymphadenopathy. CARDIOVASCULAR: Regular rate and rhythm without murmurs, gallops, or rubs. RESPIRATORY: Breath sounds equal bilaterally. No accessory muscle use. GASTROINTESTINAL: umbilical hernia Abdomen soft, non-tender, nondistended. MUSCULOSKELETAL: No cyanosis, or edema. BACK: Nontender without obvious deformity. No CVA tenderness. Vital Signs Date Time Temp Pulse Resp B/P (MAP) Pulse Ox O2 Delivery O2 Flow Rate FiO2 01/14/18 16:00 72 01/14/18 15:00 98.1 77 19 105/59 (74) 96 01/14/18 15:00 78 01/14/18 14:00 74 01/14/18 13:00 76 01/14/18 12:00 79 01/14/18 11:00 98.1 69 17 112/59 (76) 96 01/14/18 11:00 69 01/14/18 10:19 18 01/14/18 10:00 83 01/14/18 09:00 91 01/14/18 08:00 92 01/14/18 07:33 97 21 01/14/18 07:15 98.2 86 18 111/55 (73) 96 01/14/18 07:15 80 01/14/18 07:00 96 Room Air 01/14/18 06:20 78 01/14/18 05:18 75 01/14/18 04:24 77 01/14/18 03:50 99.2 88 18 119/64 (82) 96 01/14/18 03:50 80 01/14/18 02:56 83 01/14/18 01:00 84 01/14/18 00:02 74 01/13/18 23:36 77 01/13/18 23:35 98.5 76 18 96/53 (67) 96 01/13/18 22:15 96 01/13/18 21:00 88 01/13/18 20:20 90 01/13/18 19:25 89 01/13/18 19:25 97 Room Air 01/13/18 19:25 98.6 95 17 118/56 (76) 97 01/13/18 19:09 96 21 01/13/18 18:00 96 Result Diagram: 01/14/1832901/14/18329 (1) CHF (congestive heart failure) (2) Chronic kidney disease Plan: creatinine stable 0.79 (3) Coronary artery disease Plan: ASA, statin , plavix , amiodarone , BB OOB ambulate pulm toileting CM to eval for rehab/ (4) Hypertension Plan: controlled (5) BPH (benign prostatic hyperplasia) (6) EtOH dependence Plan: multi vitamin, folic acid and thiamine (7) Anxiety Plan: add ativan po at night Mayra Reddy Jan 14, 2018 17:03
--- NOTE | 2018-01-14 18:16 | EKG ---
Date Performed: 01/14/2018 Time Performed: 11:04:18 PTAGE: 72 years EKG: Sinus rhythm Inferior infarct - age undetermined - possibly acute Lateral T wave changes may be due to myocardial ischemia Low QRS voltages in precordial leads Abnormal ECG PREVIOUS TRACING : 01/12/2018 06.11 No significant change from previous tracing noted. DOCTOR: Pablo Mayes Interpretating Date/Time 01/14/2018 18:15:46
[2018-01-14] MEDS: SENNOSIDES 8.6 MG TAB PO SCH (21:00)
[2018-01-14] MEDS: ATORVASTATIN 40 MG TAB PO SCH (22:08)
[2018-01-14] MEDS: LORazepam 0.5 MG TAB PO PRN (22:31)
[2018-01-15] VITALS (16 sets, daily range): BP systolic 123–128; BP diastolic 58–64; PULSE 73–98; RESP 20–22; TEMP 98–98.5; O2SAT 96–99
[2018-01-15] MEDS: ACETAMINOPHEN/HYDROcodone 325 MG/5 MG TAB PO PRN (04:43)
[2018-01-15] MEDS: PANTOPRAZOLE SOD 40 MG DELAYED RELEASE TAB PO SCH (05:53)
[2018-01-15] MEDS: INSULIN ASPART SUPPLEMENTAL SCALE SQ SCH ×2 (08:00→12:00)
[2018-01-15] MEDS: FOLIC ACID 1 MG TAB PO SCH (09:10)
[2018-01-15] MEDS: THIAMINE HCL 100 MG TAB PO SCH (09:10)
[2018-01-15] MEDS: MULTIVITAMINS/MINERALS THERAPEUTIC TAB PO SCH (09:10)
[2018-01-15] MEDS: DOCUSATE SODIUM 100 MG CAP PO SCH (09:10)
[2018-01-15] MEDS: METOPROLOL TARTRATE 25 MG TAB PO SCH (09:10)
[2018-01-15] MEDS: POLYETHYLENE GLYCOL 17 GM PKG PO SCH (09:11)
[2018-01-15] MEDS: MAGNESIUM HYDROXIDE SUSP 30 ML CUP PO SCH (09:11)
[2018-01-15] MEDS: CLOPIDOGREL 75 MG TAB PO SCH (09:11)
[2018-01-15] MEDS: SODIUM CHLORIDE 0.9% FLUSH 10 ML FLUSH IV FLUSH SCH (09:11)
[2018-01-15] MEDS: AMIODARONE 200 MG TAB PO SCH (09:11)
[2018-01-15] MEDS: ASPIRIN 81 MG CHEW TAB PO SCH (09:11)
[2018-01-15] MEDS ORDERED: THERM PO (14:55)
[2018-01-15] MEDS ORDERED: METO25TA3 PO (14:55)
[2018-01-15] MEDS ORDERED: PLAV75TA29 PO (14:55)
[2018-01-15] MEDS ORDERED: ASPI81 PO (14:55)
[2018-01-15] MEDS ORDERED: AMIO200T PO (14:55)
[2018-01-15] MEDS ORDERED: ATOR40TA16 PO (14:55)
[2018-01-15] MEDS ORDERED: LORA-392 PO (14:55)
[2018-01-15] MEDS ORDERED: HYDR-3516 PO (14:55)
[2018-01-15] MEDS ORDERED: DOCU1CAP39 PO (14:55)
[2018-01-15] MEDS ORDERED: RAMI1.252 PO (14:57)
--- NOTE | 2018-01-15 15:01 | HHI.DS ---
Discharge Summary Admission Date Jan 11, 2018 at 05:48 Discharge Date: Jan 15, 2018 Admitting Diagnosis 1. Multi-Vessel Coronary Artery Disease. 2. Stable Angina 3. Mild Mitral Insufficiency 4. Moderate Left Ventricular Function (EF 40-45%) (1) Coronary artery disease Diagnosis: Principal ICD Codes: I25.10 - Atherosclerotic heart disease of [place] coronary artery without angina pectoris (2) Hypertension Diagnosis: Principal ICD Codes: I10 - Essential (primary) hypertension (3) Chronic kidney disease Diagnosis: Principal ICD Codes: N18.9 - Chronic kidney disease, unspecified (4) BPH (benign prostatic hyperplasia) Diagnosis: Principal ICD Codes: N40.0 - Benign prostatic hyperplasia without lower urinary tract symptoms (5) EtOH dependence Diagnosis: Principal ICD Codes: F10.20 - Alcohol dependence, uncomplicated (6) Anxiety Diagnosis: Principal ICD Codes: F41.9 - Anxiety disorder, unspecified (7) CHF (congestive heart failure) Diagnosis: Principal ICD Codes: I50.9 - Heart failure, unspecified (8) S/P CABG (coronary artery bypass graft) Diagnosis: Secondary ICD Codes: Z95.1 - Presence of aortocoronary bypass graft Procedures 01/11 . Off-pump Coronary Artery Bypass Grafting x 4 with Left Internal Mammary Artery (CHAMBERS) to the Left Anterior Descending (LAD), reverse saphenous vein graft to the Obtuse Marginal 1 (OM1) branch of the Circumflex artery, reverse saphenous vein graft to the Ramus marginalis (RM), reverse saphenous vein graft to the Posterior Descending Artery (RPDA) of the Right Coronary Artery Bilateral Leg Endoscopic Vein [place] Intraoperative Vein Mapping CBC/BMP: 01/14/18 0330 01/14/18 0330 Significant Findings Laboratory Tests Test 01/13/18 05:00 01/14/18 03:30 Red Blood Count 2.46 MIL/MM3 (4.50-5.90) 2.52 MIL/MM3 (4.50-5.90) Hemoglobin 8.6 GM/DL (13.0-17.0) 8.6 GM/DL (13.0-17.0) Hematocrit 24.1 % (39.0-51.0) 24.5 % (39.0-51.0) Mean Corpuscular Hemoglobin 35.2 PG (27.0-34.0) 34.3 PG (27.0-34.0) Platelet Count 140 TH/MM3 (150-450) Neutrophils (%) (Auto) 76.2 % (16.0-70.0) Lymphocytes (%) (Auto) 8.9 % (9.0-44.0) Monocytes (%) (Auto) 13.5 % (0.0-8.0) Lymphocytes # (Auto) 0.6 TH/MM3 (1.0-4.8) Random Glucose 109 MG/DL (74-106) Calcium Level 8.3 MG/DL (8.5-10.1) 8.3 MG/DL (8.5-10.1) Imaging 72-year-old male, patient of Dr. Levi Riley and Dr. Bassett, who apparently started having some shortness of breath about 6 week ago, had an upper respiratory infection about 2 weeks ago, was sick for about 10 days, was seen by cardiology for a workup, had a prior history of 2D echo back in 04/2017, which showed moderate mitral valve regurgitation. He underwent transesophageal echocardiogram today by Dr. Bassett, which showed an EF of 45-50%, global left ventricular dysfunction, left atrial size was mild to moderately dilated, moderate mitral valve regurgitation, trace tricuspid regurgitation. He also underwent cardiac catheterization which showed 4 vessel disease. Proximal LAD was 100% occluded, the mid distal 50%, the circumflex was 99%, the OM 20%, the RCA 90%, the ramus 80%. We were consulted to evaluate for coronary artery bypass grafting and possible mitral valve repair versus replacement. Pt was discharged home and electively admitted for surgery today PAST MEDICAL HISTORY: coronary artery disease MR , HTN, HLP, BPH, CKD stage 3, alcoholic cirrhosis Cardiomyopathy , CHF PE at Discharge GENERAL: A&O x 3 SKIN: Warm and dry. prevena dressing in place evh sites intact and well approximated HEAD: Normocephalic. EYES: No scleral icterus. No injection or drainage. NECK: Supple, trachea midline. No JVD or lymphadenopathy. CARDIOVASCULAR: Regular rate and rhythm without murmurs, gallops, or rubs. RESPIRATORY: Breath sounds equal bilaterally. No accessory muscle use. GASTROINTESTINAL: Abdomen soft, non-tender, nondistended. MUSCULOSKELETAL: No cyanosis, or edema. BACK: Nontender without obvious deformity. No CVA tenderness. Hospital Course surgery: Off-pump Coronary Artery Bypass Grafting x 4 with Left Internal Mammary Artery (CHAMBERS) to the Left Anterior Descending (LAD), reverse saphenous vein graft to the Obtuse Marginal 1 (OM1) branch of the Circumflex artery, reverse saphenous vein graft to the Ramus marginalis (RM), reverse saphenous vein graft to the Posterior Descending Artery (RPDA) of the Right Coronary Artery Bilateral Leg Endoscopic Vein [place] 2500cc crystalloid, 500cc cell saver, 800cc EBL extubated after surgery 3/6 pt very painful, meds adjusted VSS, will transfer to stepdown wean 02 creatinine stable EKG q waves inf leads unchanged, non-specific st changes CXR consolidation left lower lobe/ needs aggressive pulm toileting 01/13 chest tube drained 110cc/ 12 hrs, then additional 100cc/ chest left in place very anxious about removal agreeable for rehab after discharge continue pulm toileting 01/14 chest tube dc without difficulty now in NSR eval for dc to rehab in am 01/15 doing well in NSR increase dose of BB stable for dc to rehab today add low dose alberto Pt Condition on Discharge: Good Discharge Disposition: Discharge to SNF Discharge Instructions DIET: Follow Instructions for: Heart Healthy Diet Activities you can perform: Full Weight Bearing, Shower Only-No Bath Activities to avoid: Strenuous Activity, Driving Additional Activity Instructio: no lifting > 8 lbs or gallon of milk Follow up Referrals: Cardiology, Interventional - 4 Weeks with Kenn Bassett MD PCP Follow-up - 2 Weeks with Levi Riley DO Surgical - 2 Weeks with Odin Friend MD New Orders: BASIC METABOLIC PROF - 2 Weeks New Medications: Ramipril (Ramipril) 1.25 Mg Cap 1.25 MG PO DAILY for heart failure, #30 CAP 2 Refills Amiodarone (Amiodarone) 200 Mg Tab 200 MG PO Q12HR for heart rhythm, #28 TAB 0 Refills Aspirin (Tgt Aspirin) 81 Mg Chw 81 MG PO DAILY for Blood Clot Prevention, #30 EA 2 Refills Atorvastatin (Atorvastatin) 40 Mg Tab 40 MG PO HS for Cholesterol Management, #30 TAB 2 Refills Clopidogrel (Plavix) 75 Mg Tab 75 MG PO DAILY for Blood Clot Prevention, #30 TAB 2 Refills Docusate Sodium (Dok) 100 Mg Cap 100 MG PO BID for Constipation, #60 CAP 0 Refills Hydrocodone/Acetaminophen (Hydrocodone-Acetamin 5-325 mg) 5 Mg-325 Mg Tablet 1 TAB PO Q4H PRN for PAIN SCALE 1 TO 5, #40 TAB 0 Refills Lorazepam (Ativan) 0.5 Mg Tab 0.5 MG PO HS PRN for SLEEP, #30 TAB 0 Refills Metoprolol Tartrate (Metoprolol Tartrate) 25 Mg Tab 25 MG PO Q12HR for Blood Pressure Management, #60 TAB 2 Refills Multiple Vitamins W/ Minerals (Thera M Plus) 1 Tab 1 TAB PO DAILY for multi vitamin, #30 TAB Continued Medications: Albuterol 8.5 GM Inh (Proair Hfa 8.5 GM Inh) 90 Mcg/Act Aer 2 PUFF INH Q4-6H PRN for SHORTNESS OF BREATH, #1 INHALER 0 Refills 108 mcg/actuation Glycopyrrolate-Formoterol Fuma (Bevespi Aerosphere 9-4.8 Mcg/Act) 9 Mcg-4.8 Mcg Aer 2 PUFF INH DAILY Spironolactone-Hydrochlorothiazide (Spironolactone-Hydrochlorothiazide) 25-25 Mg Tab 1 TAB PO BID, #60 TAB 0 Refills Discontinued Medications: Aspirin DR (Aspirin EC) 325 Mg Tabdr 325 MG PO DAILY, TAB 0 Refills Isosorbide Mononitrate ER (Isosorbide Mononitrate ER) 30 Mg Amy 30 MG PO DAILY for Prevent Chest Pain, #30 TAB 0 Refills Lorazepam (Lorazepam) 1 Mg Tab 1 MG PO DAILY PRN for ANXIETY for 1 Day, #1 TAB 0 Refills Metoprolol Succinate ER 24 HR (Metoprolol Succinate ER 24 HR) 50 Mg Tab 50 MG PO DAILY, #30 TAB 0 Refills Mayra Reddy Jan 15, 2018 15:01
== END 2018-01-15 16:30 | DRG 234 ==
LOC: HSDI 05:48 → HCVI 13:40 → HCPC 01-12 09:15
PROVIDERS: ADMIT Thoracic Surgery (Cardiothoracic Vascular Surgery); ATTEND Thoracic Surgery (Cardiothoracic Vascular Surgery)
PROC: 4A023N7 Measurement of Cardiac Sampling and Pressure, Left Heart, Percutaneous Approach (ICD-10-PCS; 2018-01-08)
PROC: B2111ZZ Fluoroscopy of Multiple Coronary Arteries using Low Osmolar Contrast (ICD-10-PCS; 2018-01-08)
PROC: B2151ZZ Fluoroscopy of Left Heart using Low Osmolar Contrast (ICD-10-PCS; 2018-01-08)
PROC: 021209W Bypass Coronary Artery, Three Arteries from Aorta with Autologous Venous Tissue, Open Approach (ICD-10-PCS; 2018-01-11)
PROC: 06BQ4ZZ Excision of Left Saphenous Vein, Percutaneous Endoscopic Approach (ICD-10-PCS; 2018-01-11)
PROC: 06BP4ZZ Excision of Right Saphenous Vein, Percutaneous Endoscopic Approach (ICD-10-PCS; 2018-01-11)
PROC: B246ZZ4 Ultrasonography of Right and Left Heart, Transesophageal (ICD-10-PCS; 2018-01-11)
PROC: 02100Z9 Bypass Coronary Artery, One Artery from Left Internal Mammary, Open Approach (ICD-10-PCS; principal; 2018-01-11 07:49)
DX: I25.118 Atherosclerotic heart disease of native coronary artery with other forms of angina pectoris (principal); I13.0 Hypertensive heart and chronic kidney disease with heart failure and stage 1 through stage 4 chronic kidney disease, or unspecified chronic kidney disease; I42.9 Cardiomyopathy, unspecified; I50.9 Heart failure, unspecified; I25.82 Chronic total occlusion of coronary artery; N18.3 Chronic kidney disease, stage 3 (moderate); I34.0 Nonrheumatic mitral (valve) insufficiency; E78.5 Hyperlipidemia, unspecified; N40.0 Benign prostatic hyperplasia without lower urinary tract symptoms; K70.30 Alcoholic cirrhosis of liver without ascites; F10.20 Alcohol dependence, uncomplicated; F41.1 Generalized anxiety disorder; Y90.9 Presence of alcohol in blood, level not specified; Z87.891 Personal history of nicotine dependence; Z79.899 Other long term (current) drug therapy; R09.89 Other specified symptoms and signs involving the circulatory and respiratory systems; R06.02 Shortness of breath
CPT/HCPCS: 71045; 76937; 80048; 80061; 80076; 82948; 83735; 85025; 85027; 86850; 86900; 86901; 86920; 87641; 93005; 93318; 94002; 94150; 94640; 94664; 94667; 94668; C1768; J0131; J0690; J1644; J1815; J1817; J1885; J2150; J2250; J2370; J2440; J2720; J3010; J3370; J3475; J3480; J7040; J7050; J7060; J7120; P9045; P9047